=== PATIENT | male | born 1975 | race Caucasian/White ===

== ENCOUNTER 2022-01-06 14:31 | Inpatient (IN) | payer OTHER, SELFPAY ==
[2022-01-06] VITALS (17 sets, daily range): BP systolic 114–150; BP diastolic 73–91; PULSE 65–89; RESP 11–17; O2SAT 96–100; BMI 41.0
--- NOTE | ~2022-01-06 | XR_ITS ---
EXAMINATION: XR chest 1V portable Exam Date/Time: 01/06/2022 14:50 CDT CLINICAL HISTORY: chest pain, STEMI Comparison: None available. RESULT: Lines, tubes, and devices: Partially visualized cervical spine hardware. Lungs and pleura: Subsegmental opacities in the lateral left lung base, with costophrenic angle blun ting.. Cardiomediastinal silhouette: Stable cardiomediastinal silhouette. Other: No acute osseous or upper abdominal finding. IMPRESSION: Atelectasis/consolidation in the left lateral lower lung with adjacent small pleural effusion. Reviewed, dictated and finalized at location K. IMPRESSION: Atelectasis/consolidation in the left lateral lower lung with adjacent small pl eural effusion.
--- NOTE | 2022-01-06 14:36 | ECG_ITS ---
Measurements Intervals [place] Rate: 79 P: 68 DC: 167 QRS: 81 QRSD: 96 T: 68 QT: 362 QTc: 416 Interpretive Statements SINUS RHYTHM LOW QRS VOLTAGE IN PRECORDIAL LEADS [QRS DEFLECTION < 1.0 mV IN CHEST LEADS] ANTEROSEPTAL MYOCARDIAL INFARCTION , OF INDETERMINATE AGE [40+ ms Q WAVE IN V1-V4] MARKED ST ELEVATION, CONSIDER INFERIOR AND LATERAL INJURY [MARKED ST ELEVATION W/O NORMALLY INFLECTED T WAVE IN II/aVF] ACUTE [place] NO PREVIOUS ECG AVAILABLE FOR COMPARISON Electronically Signed On 01-06-2022 16:17:53 CDT by Cande Jernigan M.D.
[2022-01-06 14:39] LABS: Glucose Point of Care 157 mg/dl (65-105)
--- NOTE | 2022-01-06 14:42 | ED.CHESTPAIN ---
HPI - Chest Pain General Chief Complaint: Chest Pain Stated Complaint: general ill feeling History of Present Illness HPI narrative: pt woke up took am meds no food went into yard to change electrical outlet on house no electric shock then sudden onset sweating and cp sob all right sided pointing to lower chest/upper abd but says doesn't feel like abd says dull discomfort in chest right sided adn started lower back at first Related Data Allergies Allergy/AdvReac Type Severity Reaction Status Date / Time lorazepam Allergy Unknown Verified 08/07/19 11:48 Review of Systems Review of Systems: CONSTITUTIONAL: Denies fever, chills, or sweats. EYES: Denies visual changes, redness, or discharge. ENT: Denies rhinorrhea, congestion, sore throat, or otalgia. CARDIOVASCULAR: Denies , palpitations, or edema. has cp RESPIRATORY: Denies cough, has sob. GASTROINTESTINAL: Denies abdominal pain, nausea, vomiting, or diarrhea. GENITOURINARY: Denies dysuria or hematuria. SKIN: Denies rash or itching. has sweating MUSCULOSKELETAL: Denies back pain, joint pain, or myalgia. NEUROLOGIC: Denies headache, numbness, or weakness. PSYCHIATRIC: Denies anxiety or depression. [facility] Past Medical History Medical History H/O placement of stent in anterior descending branch of left coronary artery Hyperlipidemia Hypertension Family History Family History Father Hypertension Family history of diabetes mellitus in first degree relative Mother Hypertension Family history of diabetes mellitus in first degree relative Social History Social History Smoking end date: 09/09/12 Alcohol intake: current Exam Narrative: APPEARANCE: obese, pale clamy in pain Head normocephalic atraumtaic. EYES: PERRLA/EOMI, conjunctivae very clear. NOSE: Normal no drainage EARS:TMS clear Kartik Fitch, with good light reflex. THROAT: Pharynx clear, no exudate. NECK: Supple. No adenopathy, no masses. RESPIRATORY: Airway patent, repsirations nonlabored. Clear to auscultation bilaterally, no rales, rhonchi, wheezing. CARDIOVASCULAR: Regular rate and rhythm without murmurs rubs or gallops. ABDOMINAL: Soft, nontender, nondistended, no hepatosplenomegally cant reproduce the pain to palp ruq says in his chest MUSCULOSKELETAl: Moves all extremities. Strenght/ROM intact, No edema, No calf tenderness. NEURO: Alert. Cranial nerves II through XII intact. Good gait. Good coordination SKIN:: Warm, dry. Normal Color slightly clamy PSYCHIATRIC: Normal affect/mood, normal interaction with parents. Course Consultations Consultation #1: talked to Dr Funes at 1435 he reviewed old records wanted ekg old and new texted to him so sent at 1440 protocol going for stemi called back at 1444 wants repeat ekg then heading out agrees sublte new inferior changes aware of ekg at [address] here cath team also already called in pt's vitals stable no new issues meds all ordered and going Vital Signs Vital signs: Vital Signs Pulse Rate 75 01/06/22 14:30 Respiratory Rate 15 01/06/22 14:30 Blood Pressure 114/75 01/06/22 14:30 Pulse Oximetry 99 01/06/22 14:30 Pulse Rate 72 01/06/22 15:06 Respiratory Rate 14 01/06/22 15:06 Blood Pressure 133/75 01/06/22 15:06 Pulse Oximetry 98 01/06/22 15:06 MDM - Chest Pain Differential Diagnosis Differential diagnosis: Likely atypical chest pain, st elevation myocardial infarction and biliary colic Lab Data Attestation: I reviewed the patient's lab results. Result diagrams: 01/06/22 14:55 01/06/22 14:55 Labs: Lab Results 01/06/22 01/06/22 01/06/22 Range/Units 14:36 14:55 14:55 WBC 20.0 H (4.5-10.0) K/mm3 RBC 4.84 (4.6-6.20) M/mm3 Hgb 14.8 (14.0-18.0) g/dL Hct 46.7 (42.0-52.0) % MCV 96.5 (80-100) fl MCH 30.6
[2022-01-06] MEDS: MORPHINE SULFATE (*CRX) 2 MG/ML INJ IV PUSH ×2 (14:45→15:05)
[2022-01-06] MEDS: ONDANSETRON INJ 4 MG/2 ML VIAL IV PUSH (14:45)
--- NOTE | 2022-01-06 14:47 | ECG_ITS ---
Measurements Intervals [place] Rate: 74 P: 61 [place]: 164 QRS: 54 QRSD: 92 T: 41 QT: 360 QTc: 400 Interpretive Statements SINUS RHYTHM LOW QRS VOLTAGE IN PRECORDIAL LEADS ANTEROSEPTAL INFARCT, AGE INDETERMINATE SUBTLE ST ELEVATION IN INFERIOR AND LATERAL LEADS- CONSIDER ACUTE INJURY ABNORMAL ECG Electronically Signed On 01-08-2022 7:48:10 CDT by Brien Luke D.O.
[2022-01-06 15:00] LABS: Basophils Absolute Auto 0.1 K/mm3 (0.0-0.1); Basophils Percent Auto 0.4 % (0.2-1.2); Eosinophils Absolute Auto 0.1 K/mm3 (0-0.3); Eosinophils Percent Auto 0.5 % (0-4.4); Hematocrit 46.7 % (42.0-52.0); Hemoglobin 14.8 g/dL (14.0-18.0); Immature Granulocyte Absolute 0.18 K/mm3 (0.00-0.031); Immature Granulocyte Percent A 0.9 % (0-0.5); Lymphocytes Absolute Auto 3.35 K/mm3 (0.9-3.2); Lymphocytes Percent Auto 16.7 % (18.3-44.2); Mean Corpuscular HGB Conc 31.7 g/dl (32-36); Mean Corpuscular Hemoglobin 30.6 pg (26-34); Mean Corpuscular Volume 96.5 fl (80-100); Monocytes Absolute Auto 1.3 K/mm3 (0.1-0.6); Monocytes Percent Auto 6.6 % (2.6-8.5); Neutrophils Percent Auto 74.9 % (45.5-73.1); Platelet Count Result 329 k/mm3 (150-375); Red Blood Count 4.84 M/mm3 (4.6-6.20); Red Cell Distribution Width 13.5 % (11.5-14.5)
[2022-01-06] MEDS: SODIUM CHLORIDE 0.9% IV 1,000 ML 150 ML IV CONT (15:04)
[2022-01-06] MEDS: TICAGRELOR 90 MG TABLET 180 MG PO (15:04)
--- NOTE | 2022-01-06 15:04 | PM.IMHP ---
H&P: HPI History of Present Illness Date/Time: 01/06/22 15:04 Chief Complaint: CP Inferior STEMI Narrative: Bertin Mueller is a 46 y.o. male with CAD, (anterior VA? and) status post VFib arrest in October 2012 treated with aspiration thrombectomy and drug-eluting stent to the proximal Left anterior descending. Cardiac catheterization in January 2014 showed EF of 55% with a patent Left anterior descending stent. History of hypertension, hyperlipidemia. Followed by Dr. Garcia in our office, stable for the last several years, seen in April 2021 stable. He was in his normal state of health, compliant w/ meds, this morning when he woke up at 10:00 a.m. However about 12: 30 p.m. he suddenly felt a severe heavy weight on his chest with shortness of breath. He was brought to the emergency room and found to have some slight ST change in the inferior leads, possible inferior STEMI. I was asked to see the patient and repeat EKG showed extensive Inferolateral ST elevation consistent with an inferolateral STEMI. Code STEMI has been called. The patient has received aspirin, heparin, nitroglycerin spray and morphine but is still having a lot of chest pain. Review of Systems Constitutional: Constitutional: Reports lethargy Eyes: Eyes: Reports no additional eye complaints ENT: Denies epistaxis Cardiovascular: Cardiovascular: Reports chest pain, Denies pedal edema, Denies leg edema, Denies lightheadedness and Denies palpitations Respiratory: Respiratory: Denies cough and Reports dyspnea Gastrointestinal: Gastrointestinal: Denies abdominal pain, Denies melena and Denies hematochezia Genitourinary: Genitourinary: Denies hematuria Musculoskeletal: Musculoskeletal: Reports arthralgias Integumentary/Breasts: Skin/Breast: Denies rash Neurologic: Denies confusion Psychiatric: Psychiatric: Reports anxiety and Reports depression Comments: Under lot of stress recently; injured on the job several years ago and unemployed. [facility] Past Medical History Medical History (Updated 01/06/22 @ 18:01 by Cande Jernigan MD) H/O placement of stent in anterior descending branch of left coronary artery s/p fib arrest, LAD stent Hyperlipidemia Hypertension Surgical History Surgical History (Updated 01/06/22 @ 18:01 by Cande Jernigan MD) No history of previous surgery Family History Family History (Updated 01/06/22 @ 18:02 by Cande Jernigan MD) Father Hypertension Family history of diabetes mellitus in first degree relative Mother Hypertension Family history of diabetes mellitus in first degree relative CHF (congestive heart failure) Cause of Social History Social History Years smoked: 32 Smoking status: Former smoker Smokeless tobacco user: chewing tobacco Smoking end date: 09/09/12 Alcohol intake: current Drinks per week: 1 Substance use type: does not use Spiritual care concerns: No Meds Home Medications and Allergies Home Medications Medication Instructions Recorded Confirmed Type aspirin [Adult Aspirin EC Low 81 mg PO DAILY 01/06/22 01/06/22 History Strength] atorvastatin 40 mg PO DAILY 01/06/22 01/06/22 History cyclobenzaprine 10 mg PO TID PRN 01/06/22 01/06/22 History levothyroxine [Euthyrox] 50 mcg PO DAILY 01/06/22 01/06/22 History lisinopril 5 mg PO DAILY 01/06/22 01/06/22 History metoprolol succinate 25 mg PO DAILY 01/06/22 01/06/22 History tramadol [Ultram] 50 mg PO PRN PRN 01/06/22 01/06/22 History Allergies Allergy/AdvReac Type Severity Reaction Status Date / Time lorazepam Allergy Unknown Verified 08/07/19 11:48 Vital Signs Vital Signs - 24 hr 01/06/22 14:30 Pulse Rate 75 Respiratory Rate 15 Blood Pressure 114/75 Pulse Oximetry 99 Exam Const: General: in distress and uncomfortable Other: pale HENMT: Mouth: Yes moist mucous membranes Eyes: EOM: EOMs intact bilaterally Neck: Neck
[2022-01-06 15:12] LABS: Alanine Aminotransferase 61 U/L (4-50); Albumin Level 4.3 g/dL (3.5-5.1); Alkaline Phosphatase 104 U/L (38-126); Anion Gap 7 mmol/L (8-16); Aspartate Amino Transferase 57 U/L (17-59); Bilirubin,Total 0.9 mg/dL (0.2-1.3); Blood Urea Nitrogen 14 mg/dL (9-20); Calcium 8.3 mg/dL (8.4-10.2); Carbon Dioxide 22 mmol/L (22-30); Chloride 104 mmol/L (98-107); Cholesterol 131 mg/dL (0-200); Estimated CRCL calculation 115 ml/min; Estimated Glomerular Filt Rate > 60; Glucose 169 mg/dL (65-110); HDL Direct 37 mg/dL; Potassium 4.4 mmol/L (3.4-5.0); Sodium 133 mmol/L (137-145); Triglycerides 141 mg/dL (<150)
[2022-01-06 15:20] LABS: Platelet Estimate Adequate (Adequate)
[2022-01-06 15:21] LABS: Burr Cells 1+ (NORMAL)
[2022-01-06 15:22] LABS: LDL Cholesterol Direct 67 mg/dL
--- NOTE | 2022-01-06 15:24 | WPDMODSED ---
Moderate Sedation Note-Pt Data Patient Data Allergies Allergy/AdvReac Type Severity Reaction Status Date / Time lorazepam Allergy Unknown Verified 08/07/19 11:48 Current Medications: Active Medications Sodium Chloride (Normal Saline Iv) 1,000 mls @ 150 mls/hr IV CONT .Q6H40M STA Stop: 01/06/22 21:34 Last Admin: 01/06/22 15:04 Dose: 150 mls/hr Documented by: Sedation/Anesthesia: No previous sedation/anesthesia problems (including family history). [facility] Past Medical History Medical History (Updated 01/06/22 @ 15:11 by Cande Jernigan MD) H/O placement of stent in anterior descending branch of left coronary artery Hyperlipidemia Hypertension Family History Family History (System 08/07/19 @ 11:48 by Edith Johnson) Father Hypertension Family history of diabetes mellitus in first degree relative Mother Hypertension Family history of diabetes mellitus in first degree relative Social History Social History (System 08/07/19 @ 11:48 by Edith Johnson) Smoking end date: 09/09/12 Alcohol intake: current Mod Sed Physical Exam Physical Exam Pre Procedural Exam: Normal: Airway Hours since solid foods: 4 Hours since liquid intake: 4 Mallampati Classification: class II Internal Medicine - PN: Obj Da Vital Signs Vital Signs: Vital Signs - 24 hr 01/06/22 14:30 01/06/22 15:06 Pulse Rate 75 72 Respiratory Rate 15 14 Blood Pressure 114/75 133/75 Pulse Oximetry 99 98 Meds/Results Medications: Active Medications Generic Name Dose Route Start Last Admin Trade Name Freq PRN Reason Stop Dose Admin Sodium Chloride 1,000 mls @ 150 mls/hr 01/06/22 14:55 01/06/22 15:04 Normal Saline Iv IV CONT 01/06/22 21:34 150 mls/hr .Q6H40M STA Administration Radiology Results: ITS Impressions Chest X-Ray 01/06/22 15:01 IMPRESSION: Atelectasis/consolidation in the left lateral lower lung with adjacent small pleural effusion. Labs CBC & Chem 7: 01/06/22 14:55 01/06/22 14:55 Labs: Laboratory Results - last 24 hr 01/06/22 01/06/22 01/06/22 14:36 14:55 14:55 WBC 20.0 H RBC 4.84 Hgb 14.8 Hct 46.7 MCV 96.5 MCH 30.6 MCHC 31.7 L RDW 13.5 Plt Count 329 MPV 10.0 Immature Gran % (Auto) 0.9 H Neut % (Auto) 74.9 H Lymph % (Auto) 16.7 L [place] % (Auto) 6.6 Eos % (Auto) 0.5 Baso % (Auto) 0.4 Lymph # (Auto) 3.35 H [place] # (Auto) 1.3 H Eos # (Auto) 0.1 Baso # (Auto) 0.1 Abs Immat Gran (auto) 0.18 H Absolute Neuts (auto) 15.0 H Absolute Nucleated RBC 0.0 Nucleated RBC % 0.0 Platelet Estimate Adequate Graciela Cells 1+ Sodium 133 L Potassium 4.4 Chloride 104 Carbon Dioxide 22 Anion Gap 7 L BUN 14 Creatinine 0.90 Estim Creat Clear Calc 115 Estimated GFR > 60 Glucose 169 H POC Capillary Glucose 157 H Calcium 8.3 L Total Bilirubin 0.9 AST 57 ALT 61 H Alkaline Phosphatase 104 Total Protein 7.0 Albumin 4.3 Triglycerides 141 Cholesterol 131 LDL Cholesterol Direct 67 HDL Direct 37 ASA Classification/Sedation ASA Classification/Sedation ASA Class: IV Emergent: Yes Risks: Risks, benefits and alternatives explained and patient/family accepted plan for sedation. Patient re-evaluated immediately prior to sedation.
[2022-01-06 15:25] LABS: Troponin I < 0.012 ng/mL (0.000-0.034)
--- NOTE | 2022-01-06 15:26 | WPDCARDPROC ---
Cardiac Cath Procedure Note Date of procedure:: 01/06/22 Performing physician:: Héctor Funes MD Procedure Procedure note:: EMERGENT CARDIAC CATHETERIZATION AND PERCUTANEOUS CORONARY INTERVENTION REPORT DATE OF PROCEDURE: 01/06/2022 INDICATION FOR PROCEDURE: ACUTE CORONARY SYNDROME -ST-ELEVATION IN THE INFERIOR LEADS WITH RECIPROCAL CHANGES BRIEF CLINICAL HISTORY: 46-year-old male with known history of premature CAD, history of anterior ST-elevation [place] status post PCI/ 3.0 x 18 mm Xience everolimus eluting stent placement to the ostial LAD on 10/16/[address] Perez, hypertension, history of tobacco abuse. Patient was brought to [facility] emergency room with complaints of chest pain that started approximately 3 hours prior to arrival. EMS EKG showed sinus rhythm with subtle ST elevation in the inferior leads. Repeat EKG in the emergency room showed significant worsening of the ST-elevation in the inferior leads. Cardiac catheterization lab was activated. Patient received aspirin, and was given loading dose of ticagrelor the emergency room, in addition to heparin bolus. PROCEDURES PERFORMED: 1. Emergent left heart catheterization- Selective left and right coronary angiogram; left ventriculogram and hemodynamic assessment 2. Percutaneous coronary intervention- a) aspiration thrombectomy of distal left main, ostial LCX and ostial LAD using penumbra CAT Rx aspiration catheter; c) intravascular ultrasound (IVUS) of left main, ostial left circumflex artery and ostial -proximal LAD 3. Moderate sedation-CPT code 36528 MODERATE SEDATION: Midazolam 1 mg; fentanyl 50 mcg. Start time 1538 , Stop time 1627 ; Total [id number] time 49 minutes; Ilene Broussard RN was trained observer for moderate sedation. ACCESS SITE: Right common femoral artery PROCEDURE NOTE: Patient was emergently brought to catheterization lab and prepped and draped in a usual sterile manner. After local anesthesia with lidocaine, right common femoral artery access was taken with micropuncture needle followed by insertion of a 6 Indian sheath. Selective left and right coronary angiogram was performed using 5 Indian JL4 and JR4 catheters respectively. Orthogonal views were taken. Next, a 5 Indian JR catheter was advanced in the LV cavity and was flushed with normal saline. LV pressure measurement was performed. After this, left ventriculogram was performed using minimal dye. The catheter was flushed again, and gradient across the aortic valve was measured on the pullback of the catheter. The angiographic findings and details of intervention are given below. FINDINGS: LEFT MAIN CORONARY: The left main coronary artery is a large caliber vessel with a hazy thrombotic material in the distal segment involving the origins of LAD , and ostial LCX. LEFT ANTERIOR DESCENDING ARTERY: the LAD is a medium caliber vessel. Previously placed stent is seen in the proximal segment but appears to not cover the ostium of the LAD. Sluggish blood flow is seen in the LAD with thrombotic occlusion in the distal most part of the LAD near LV apex. Diagonal branches are small caliber vessel without significant focal stenosis. LEFT CIRCUMFLEX ARTERY: The left circumflex artery is a large size, dominant vessel which gives rise to large caliber OM branches and large caliber LPDA. There is hazy high-grade stenosis at the ostium which on IVUS is found to be calcific high-grade stenosis. RIGHT CORONARY ARTERY: RCA is a medium caliber, nondominant vessel without significant focal stenosis. LEFT VENTRICULOGRAM: Overall LV systolic function is preserved with ejection fraction about 55-60%. LVEDP was measured between 11-15 mmHg. HEMODYNAMIC ASSESSMENT: Opening pressure 106/85 mmHg , closing pressure 107/66 mmHg , LVEDP 11-15 mmHg; no significant gradient across aortic valve on the pullback of pigtail catheter. INTERVENTION REPORT: Given patient's clinical presentation and angiographi
--- NOTE | 2022-01-06 17:11 | PM.TDS ---
Transfer Discharge Sum: Prov Provider Date of admission: 01/06/22 16:51 Primary care physician: Rome Gillespie, Admitting clinician: Héctor Funes MD DS: Admitting Diagnosis Discharge Date acute coronary syndrome Admitting Diagnosis Acute coronary syndrome-ST elevation myocardial infarction CAD involving left main, ostial LCX Transfer Discharge Sum: Med Medications Active and Home Medications: Active Medications Sodium Chloride (Normal Saline Iv) 1,000 mls @ 150 mls/hr IV CONT .Q6H40M STA Stop: 01/06/22 21:34 Last Admin: 01/06/22 15:04 Dose: 150 mls/hr Documented by: Transfer Discharge Sum: Hosp Hospital Course Hospital course: Bertin Mueller is a 46 year male with known history of premature CAD, history of anterior ST-elevation [place] status post PCI/ 3.0 x 18 mm Xience everolimus eluting stent placement to the ostial LAD on 10/16/[address] Perez, hypertension, history of tobacco abuse. Patient was brought to [facility] emergency room with complaints of chest pain that started approximately 3 hours prior to arrival. EMS EKG showed sinus rhythm with subtle ST elevation in the inferior leads. Repeat EKG in the emergency room showed significant worsening of the ST-elevation in the inferior leads. Cardiac catheterization lab was activated. Patient received aspirin, and was given loading dose of ticagrelor the emergency room, in addition to heparin bolus. Emergent coronary angiogram showed hazy, thrombotic material in the distal left main; high-grade, hazy, calcific (on IVUS) stenosis at the ostium of dominant LCX; patent previously placed proximal LAD stent, however, ostium of the LAD is not covered with the stent and shows atherosclerotic plaque on IVUS; preserved overall LV systolic function, ejection fraction 55-60%, LVEDP 11-15 mmHg. Patient underwent aspiration thrombectomy of distal left main, ostial LCX, ostial LAD using penumbra CAT Rx aspiration catheter; IVUS of distal left main, ostial-proximal LAD and ostial LCX. Patient was chest pain-free and hemodynamically stable after thrombectomy. Patient will be transferred to [facility] for revascularization -PCI versus CABG. I spoke with CT surgeon at [facility] and also updated liaison inspection laboratory assistant. Patient will be initiated on unfractionated heparin, and will be continued on aspirin and high-dose statin. Patient and his family updated. Time Spent with Patient Time attestation: Total time spent providing and/or coordinating transfer services:43 minutes Exam Narrative: PHYSICAL EXAMINATION: GENERAL: obese, Alert, oriented, no acute distress MENTAL STATUS: Anxious EYES: Extraocular movements intact, no pallor EARS: External ears appear normal, hearing grossly normal NOSE: Normal and patent, no discharge MOUTH: Mucous membranes moist, tongue normal NECK: Supple, no JVD CHEST: Good respiratory effort, clear to auscultation HEART: Normal rate, regular rhythm, normal S1 and S2 ABDOMEN: Soft, nontender NEUROLOGICAL: Alert, oriented, normal speech, no gross motor deficits MUSCULOSKELETAL: No major deformity, no amputation EXTREMITIES: No pedal edema, no clubbing, no cyanosis; 7 [place] arterial sheath was secured in the right groin access site SKIN: no rash on the exposed area, no cyanosis PSYCHIATRIC: Normal mood, appropriate affect DS: Data Data Completed and Pending Labs on day of discharge: Labs from last 24 hours 01/06/22 01/06/22 01/06/22 14:55 14:55 14:36 WBC 20.0 H RBC 4.84 Hgb 14.8 Hct 46.7 MCV 96.5 MCH 30.6 MCHC 31.7 L RDW 13.5 Plt Count 329 MPV 10.0 Immature Gran % (Auto) 0.9 H Neut % (Auto) 74.9 H Lymph % (Auto) 16.7 L [place] % (Auto) 6.6 Eos % (Auto) 0.5 Baso % (Auto) 0.4 Lymph # (Auto) 3.35 H [place] # (Auto) 1.3 H Eos # (Auto) 0.1 Baso # (Auto) 0.1 Abs Immat Gran (auto) 0.18 H Absolute Neuts (auto) 15.0 H Absolute N
--- NOTE | 2022-01-06 17:24 | ADMGEN ---
This patient, Bertin Mueller, was admitted to Intensive Care Unit-6 at 1641. Patient/family oriented to hospital policies and general routines including ID bracelet, bed and alarms, visiting hours, pain management, procedures, bathroom and other care routines, personal items, smoking policy, room service/diet, and visiting hours. Information on how to activate the Rapid Response Team has been discussed. Patient/Family are encouraged to report perceived risks to care and to ask questions if they do not understand what they are told or what they should do.
[2022-01-06 17:47] LABS: INR 1.1; Prothrombin Time 13.4 Seconds (11.1-14.7)
--- NOTE | 2022-01-06 17:52 | PC.NURSE ---
Pt arrived from slab tripper accompanied by two RN's. VSS. Right femoral sheath access site clean, dry, soft, and intact. All questions answered. Physician present in room.
[2022-01-06] MEDS: fentaNYL CITRATE INJ (*CRX) 100 MCG/2 ML VIAL 25 MCG IV PUSH (18:11)
[2022-01-06] MEDS: ATORVASTATIN 40 MG TABLET 80 MG PO (19:20)
[2022-01-06 20:04] LABS: Partial Thromboplastin Time 34.2 SECONDS (22.3-36.8)
[2022-01-06] MEDS: traMADol HCL (*CRX) 50 MG TABLET 100 MG PO (20:13)
--- NOTE | 2022-01-06 20:21 | PC.NURSE ---
Pt has tramadol 100mg ordered but states that is too much and it would make him loopy . Confirmed that patient takes a 50mg dose at home. 50mg given PO and Dr Funes spoken with and order to reduce dosage to 50mg received.
[2022-01-06] MEDS: HEPARIN SOD/D5W 100 UNITS/ML 25,000 UNITS/250 ML BAG IV CONT (20:24)
[2022-01-06] MEDS: METOPROLOL TARTRATE 25 MG TABLET PO (21:08)
== END 2022-01-07 | disposition short-term general hospital (02) | DRG 174 ==
LOC: ANHED 15:27 → ANHICU 17:23 → ANHSURGERY 01-11 13:36 → ANHICU 01-11 13:36
PROVIDERS: Admitting Provider Internal Medicine Cardiovascular Disease; Emergency Provider Emergency Medicine; PCP Internal Medicine; Visit Provider Internal Medicine Cardiovascular Disease
PROC: 4A023N7 Measurement of Cardiac Sampling and Pressure, Left Heart, Percutaneous Approach (ICD-10-PCS; CPT 93452; principal; 2022-01-06 15:05)
PROC: 02C23ZZ Extirpation of Matter from Coronary Artery, Three Arteries, Percutaneous Approach (ICD-10-PCS; CPT 92973; 2022-01-06 15:05)
PROC: 02C23ZZ Extirpation of Matter from Coronary Artery, Three Arteries, Percutaneous Approach (ICD-10-PCS; 2022-01-06 15:05)
PROC: 02C23ZZ Extirpation of Matter from Coronary Artery, Three Arteries, Percutaneous Approach (ICD-10-PCS; CPT 37252; 2022-01-06 15:05)
DX: I21.19 ST elevation (STEMI) myocardial infarction involving other coronary artery of inferior wall (principal); I25.10 Atherosclerotic heart disease of native coronary artery without angina pectoris; I10 Essential (primary) hypertension; E78.5 Hyperlipidemia, unspecified; Z95.5 Presence of coronary angioplasty implant and graft; I25.2 Old myocardial infarction; Z87.891 Personal history of nicotine dependence; E66.9 Obesity, unspecified; Z68.41 Body mass index [BMI] 40.0-44.9, adult
CPT/HCPCS: 36415; 71045; 80053; 80061; 82948; 84484; 85025; 85610; 85730; 86850; 86900; 86901; 92973; 92978; 92979; 93005; 93458; 96374; 96375; 99291; A9270; C1753; C1757; C1769; C1887; C1894; J0583; J1644; J2250; J2270; J2405; J3010; J7030

== ENCOUNTER 2022-01-24 12:22 | Emergency (ER) | payer OTHER, SELFPAY ==
[2022-01-24] VITALS (20 sets, daily range): BP systolic 116–154; BP diastolic 79–108; PULSE 62–80; RESP 10–18; TEMP 36.8; O2SAT 97–100
--- NOTE | ~2022-01-24 | CT_ITS ---
EXAMINATION: CT brain wo con INDICATION: Headache COMPARISON: 06/16/2008 TECHNIQUE: Standard unenhanced head CT. The dose-length product (DLP) was 605.33 mGy-cm. The mA was a djusted according to patient size. Iterative reconstruction technique was employed. FINDINGS: There is no intracranial hemorrhage, acute infarction, or abnormal mass lesion. The ventric les are normal. There is no abnormal mass effect or midline shift. The kincaid-white matter differentiat ion is normal. The basal cisterns are patent. The orbits are normal. The paranasal sinuses, mastoids and calvarium are normal. IMPRESSION: 1. No acute intracranial abnormality. Reviewed, dictated and finalized at location A.
--- NOTE | ~2022-01-24 | XR_ITS ---
EXAMINATION: XR chest 1V DATE: 01/24/2022 13:03 INDICATION: Cough. TECHNIQUE: A single frontal view of the chest was obtained on 2 radiographs. COMPARISON: Chest single view 01/06/2022, CT abdomen and pelvis 09/01/2014 FINDINGS: The chest demonstrates clear lungs without pneumonia, pleural effusion, or pneumothorax. Th e heart size is normal. Instrumentation in cervical spine may be disc replacements. IMPRESSION: 1. No acute cardiopulmonary disease. Reviewed, dictated and finalized at location B.
--- NOTE | 2022-01-24 12:32 | ECG_ITS ---
Measurements Intervals [place] Rate: 72 P: 70 ID: [id number] QRS: 51 QRSD: 91 T: 12 QT: 352 QTc: 388 Interpretive Statements SINUS RHYTHM LOW QRS VOLTAGE IN PRECORDIAL LEADS ANTEROSEPTAL INFARCT, AGE INDETERMINATE CONSIDER INFERIOR INFARCT, AGE INDETERMINATE ABNORMAL ECG Electronically Signed On 01-24-2022 13:11:17 CDT by Brien Luke D.O.
--- NOTE | 2022-01-24 12:38 | ED.DIZZY ---
HPI - Dizziness General Chief Complaint: Dizziness Stated Complaint: dizzy, recent IN Time Seen by Provider: 01/24/22 12:27 Source: RN notes reviewed History of Present Illness HPI Narrative: Patient presents emergency department from home via EMS for dizziness. Patient states that he was sweeping with a broom when he became lightheaded and felt like he may pass out states episode lasted for approximately 2 minutes and is now resolved he denies having any feeling of the room spinning he denies having any vision changes, numbness or tingling of the extremities weakness of the extremities, chest pain, shortness of breath abdominal pain nausea vomiting or any other symptoms. Patient states he did recently have a heart catheterization with stents placed and is followed by Dr. Garcia states this occurred at the end of December Related Data Home Medications Medication Instructions Recorded Confirmed aspirin [Adult Aspirin EC Low 81 mg PO DAILY 01/06/22 01/24/22 Strength] atorvastatin 40 mg PO DAILY 01/06/22 01/24/22 cyclobenzaprine 10 mg PO TID PRN 01/06/22 01/24/22 levothyroxine [Euthyrox] 50 mcg PO DAILY 01/06/22 01/24/22 lisinopril 5 mg PO DAILY 01/06/22 01/24/22 metoprolol succinate 25 mg PO DAILY 01/06/22 01/24/22 tramadol [Ultram] 50 mg PO PRN PRN 01/06/22 01/24/22 Allergies Allergy/AdvReac Type Severity Reaction Status Date / Time lorazepam Allergy Unknown Verified 08/07/19 11:48 Review of Systems Review of Systems: Gen.: Denies fevers or chills Eyes: Denies eye pain or visual change ENT: Denies congestion Respiratory: Denies shortness of breath or cough CV: See HPI GI: Denies abdominal pain nausea, emesis or diarrhea Musculoskeletal: Denies back pain or muscle pain Neuro: Denies numbness, tingling, weakness or focal weakness Skin: Denies rash Except as documented, all other systems reviewed and negative [facility] Past Medical History Medical History H/O placement of stent in anterior descending branch of left coronary artery s/p fib arrest, LAD stent Hyperlipidemia Hypertension Surgical History Surgical History (Updated 01/06/22 @ 18:01 by Cande Jernigan MD) No history of previous surgery Family History Family History (Updated 01/06/22 @ 18:02 by Cande Jernigan MD) Father Hypertension Family history of diabetes mellitus in first degree relative Mother Hypertension Family history of diabetes mellitus in first degree relative CHF (congestive heart failure) Cause of Social History Social History Years smoked: 32 Smoking status: Former smoker Smokeless tobacco user: chewing tobacco Smoking end date: 09/09/12 Alcohol intake: current Drinks per week: 1 Substance use type: does not use Spiritual care concerns: No Exam Narrative: APPEARANCE: No acute distress, nontoxic, resting in bed EYES: EOMI, PERRL HEENT: Normocephalic, atraumatic, OMM RESPIRATORY: No respiratory distress Clear to auscultation bilaterally with no rhonchi wheezing or rales. CARDIOVASCULAR: Regular rate and rhythm without murmurs rubs or gallops. ABDOMINAL: Soft, nontender, nondistended, no rebound or guarding MUSCULOSKELETAl: Moves all extremities. No clubbing, cyanosis or edema. NEURO: Awake and alert x 3. Following commands, speech normal, no facial droop, muscle strength 5 out of 5 bilateral upper and lower extremities, no pronator SKIN:: Warm, dry. No rashes lesions or abrasions PSYCHIATRIC: Normal affect/mood, Course Course Emergency Course: Patient has been asymptomatic throughout his stay in ED remained on quality assurance monitor with no arrhythmias noted Discussed with patient he states that he believes he had an anxiety attack he states he has a history of anxiety attacks has been the ER for them several times for the past. States he used to be on medication for anxiety was been off
[2022-01-24 13:22] LABS: Basophils Absolute Auto 0.1 K/mm3 (0.0-0.1); Basophils Percent Auto 0.5 % (0.2-1.2); Eosinophils Absolute Auto 0.1 K/mm3 (0-0.3); Eosinophils Percent Auto 0.8 % (0-4.4); Hematocrit 36.4 % (42.0-52.0); Hemoglobin 11.5 g/dL (14.0-18.0); Immature Granulocyte Absolute 0.16 K/mm3 (0.00-0.031); Immature Granulocyte Percent A 1.2 % (0-0.5); Lymphocytes Absolute Auto 1.29 K/mm3 (0.9-3.2); Mean Corpuscular HGB Conc 31.6 g/dl (32-36); Mean Platelet Volume 9.1 fl (7.4-10.4); Monocytes Percent Auto 7.4 % (2.6-8.5); Neutrophils Absolute Auto 10.3 K/mm3 (1.3-6.7); Neutrophils Percent Auto 80.1 % (45.5-73.1); Platelet Count Result 444 k/mm3 (150-375); Red Blood Count 3.83 M/mm3 (4.6-6.20); Red Cell Distribution Width 15.5 % (11.5-14.5); White Blood Count 12.9 K/mm3 (4.5-10.0)
[2022-01-24] MEDS: SODIUM CHLORIDE 0.9% IV 1,000 ML 999 ML IV CONT (13:23)
[2022-01-24 13:34] LABS: Alanine Aminotransferase 43 U/L (6-50); Albumin Level 3.9 g/dL (3.5-5.1); Alkaline Phosphatase 134 U/L (38-126); Anion Gap 10 mmol/L (8-16); Aspartate Amino Transferase 33 U/L (17-59); Bilirubin,Total 0.9 mg/dL (0.2-1.3); Blood Urea Nitrogen 15 mg/dL (9-20); Calcium 8.1 mg/dL (8.4-10.2); Carbon Dioxide 23 mmol/L (22-30); Chloride 105 mmol/L (98-107); Estimated CRCL calculation 120 ml/min; Estimated Glomerular Filt Rate > 60; Glucose 109 mg/dL (65-110); Potassium 3.9 mmol/L (3.4-5.0); Sodium 138 mmol/L (137-145)
[2022-01-24 13:39] LABS: Prothrombin Time 12.7 Seconds (11.1-14.7)
[2022-01-24 13:40] LABS: Partial Thromboplastin Time 26.3 SECONDS (22.3-36.8)
[2022-01-24 13:42] LABS: Troponin I < 0.012 ng/mL (0.000-0.034)
--- NOTE | 2022-01-24 14:34 | PC.NURSE ---
Told pt we needed a urine sample and pt refused to give urine sample due to already having blood work and wanting to leave.
--- NOTE | 2022-01-24 15:20 | PC.NURSE ---
Service recovery done by this RN. Pt states he wants lab results and to be discharged after. Phleb at bedside drawing labs.
[2022-01-24 16:03] LABS: Troponin I < 0.012 ng/mL (0.000-0.034)
== END 2022-01-24 16:49 | disposition home or self-care (01) ==
PROVIDERS: Emergency Provider Emergency Medicine; PCP Family Medicine
DX: R55 Syncope and collapse (principal); I10 Essential (primary) hypertension; E78.5 Hyperlipidemia, unspecified; Z79.82 Long term (current) use of aspirin; Z79.891 Long term (current) use of opiate analgesic; Z87.891 Personal history of nicotine dependence
CPT/HCPCS: 36415; 70450; 71045; 80053; 84484; 85025; 85610; 85730; 93005; 96360; 99284; J7030

== ENCOUNTER 2022-03-22 14:47 | Outpatient (CLI) | payer OTHER, SELFPAY ==
--- NOTE | ~2022-03-22 | US_ITS ---
US abdomen limited INDICATION: Right upper quadrant pain PROCEDURE: Realtime right upper abdominal ultrasound. COMPARISON: No prior studies for comparison. FINDINGS: Pancreas is obscured by bowel content. Liver echotexture is normal without focal mass or i ntrahepatic biliary dilatation. There is normal directional flow in the portal vein. The gallbladder is normal without stones, gallbladder wall thickening or pericholecystic fluid. Comm on bile duct measures 3 mm. No sonographic Medina's sign. IMPRESSION: 1: Normal limited abdominal ultrasound. Reviewed, dictated and finalized at location A.
== END 2022-03-22 14:48 | disposition home or self-care (01) ==
LOC: CHSIMG 14:53
PROVIDERS: PCP Family Medicine; Visit Provider Family Medicine
DX: R10.11 Right upper quadrant pain (principal)
CPT/HCPCS: 76705

== ENCOUNTER 2022-06-20 11:30 | Emergency (ER) | payer OTHER, SELFPAY ==
--- NOTE | ~2022-06-20 | CT_ITS ---
EXAMINATION: CT abdomen pelvis w con DATE: 06/20/2022 14:14 INDICATION: Right upper quadrant abdominal pain. Nausea. TECHNIQUE: Computed tomography (CT) of the abdomen and pelvis was performed with 100 mL Omnipaque 350 intravenous contrast. Automated exposure control and iterative reconstruction technique were employe d. The dose-length product was 1629.72 mGy-cm. COMPARISON: Ultrasound 06/20/2022 FINDINGS: The visualized portions of the lung bases demonstrate mild atelectasis. No pleural effusion . The heart size is normal. No pericardial effusion. The liver demonstrates a 7 mm cyst. The gallblad michele, spleen, pancreas, and adrenal glands are normal. There are cysts in the kidneys measuring up to 9 mm on the right. There are no dilated loops of bowel. There is diverticulosis of the colon without evidence of diverticulitis. There are no dilated loops of bowel. The appendix is normal. There are no pathologically enlarged lymph nodes. There is no free intraperitoneal fluid. There is mild thoracolu mbar spondylosis. IMPRESSION: 1. No etiology for the patient's symptoms. Reviewed, dictated and finalized at location A.
--- NOTE | ~2022-06-20 | US_ITS ---
EXAMINATION: US abdomen limited DATE: 06/20/2022 13:40 INDICATION: Severe right upper quadrant pain TECHNIQUE: Multiple grayscale and Doppler ultrasound images of the abdomen were obtained. COMPARISON: 03/22/2022 FINDINGS: Bowel gas obscures visualization of the pancreas. The liver is normal with normal echogenic ity and echotexture. No surface nodularity. Normal hepatopetal flow in the main portal vein. The gall bladder is normal with no abnormal wall thickening, pericholecystic fluid or stones. The normal commo n bile duct measures 5 mm. There was no sonographic Medina sign. IMPRESSION: 1. Normal sonographic study of the gallbladder. Reviewed, dictated and finalized at location A.
[2022-06-20 11:30] VITALS: BP 114/67; PULSE 100; RESP 16; TEMP 36.4; O2SAT 97
[2022-06-20 11:44] LABS: Basophils Absolute Auto 0.1 K/mm3 (0.0-0.1); Basophils Percent Auto 0.4 % (0.2-1.2); Eosinophils Absolute Auto 0.1 K/mm3 (0-0.3); Eosinophils Percent Auto 0.5 % (0-4.4); Hematocrit 45.5 % (42.0-52.0); Immature Granulocyte Absolute 0.11 K/mm3 (0.00-0.031); Immature Granulocyte Percent A 0.8 % (0-0.5); Lymphocytes Percent Auto 13.6 % (18.3-44.2); Mean Corpuscular Hemoglobin 28.7 pg (26-34); Mean Corpuscular Volume 87.2 fl (80-100); Mean Platelet Volume 10.1 fl (7.4-10.4); Monocytes Percent Auto 7.5 % (2.6-8.5); Neutrophils Absolute Auto 10.2 K/mm3 (1.3-6.7); Neutrophils Percent Auto 77.2 % (45.5-73.1); Platelet Count Result 330 k/mm3 (150-375); Red Blood Count 5.22 M/mm3 (4.6-6.20); Red Cell Distribution Width 15.5 % (11.5-14.5); White Blood Count 13.3 K/mm3 (4.5-10.0)
[2022-06-20 11:58] LABS: Alanine Aminotransferase 36 U/L (6-50); Albumin Level 4.6 g/dL (3.5-5.1); Alkaline Phosphatase 97 U/L (38-126); Anion Gap 11 mmol/L (8-16); Aspartate Amino Transferase 34 U/L (17-59); Bilirubin,Total 1.5 mg/dL (0.2-1.3); Blood Urea Nitrogen 16 mg/dL (9-20); Calcium 8.7 mg/dL (8.4-10.2); Carbon Dioxide 22 mmol/L (22-30); Chloride 103 mmol/L (98-107); Estimated CRCL calculation 92 ml/min; Estimated Glomerular Filt Rate > 60; Glucose 115 mg/dL (65-110); Lipase 69 U/L (23-300); Potassium 4.7 mmol/L (3.4-5.0); Sodium 136 mmol/L (137-145)
[2022-06-20 11:59] LABS: Add Urine Microscopic? YES; Appearance Urine Clear (Clear); Bilirubin Urine Negative (Negative); Blood Urine 1+ (Negative); Color Urine Yellow (Yellow); Glucose Urine UA Negative (Negative); Hyaline Casts Urine 30-49 /lpf; Ketones Urine Negative (Negative); Leukocyte Esterase Ur Negative LEU/UL (Negative); Mucus Urine Rare /lpf; Nitrate Urine Negative (Negative); Protein Urine Negative (Negative); RBC Urine 0-2 /hpf (0-2); Specific Grav Ur 1.016 (1.001-1.035); Urobilinogen Urine Negative mg/dL (<2.0); WBC Urine 0-3 /hpf
--- NOTE | 2022-06-20 12:58 | ED.ABDPAIN ---
HPI - Abdominal Pain General Chief Complaint: Abdominal Pain Stated Complaint: upper right quad pain Time Seen by Provider: 06/20/22 12:26 History of Present Illness HPI narrative: Patient is a 47-year-old male with a history of CAD, hypertension, hyperlipidemia presenting with abdominal pain. Patient states that he has been having intermittent upper right quadrant pain for the last couple of years. States that it often happens after he eats. States that over the last several months he has had increasingly frequent and severe episodes. States that last night he had a small amount of yogurt and then his pain became more severe than its ever been. States he has been persistently nauseated since then. Patient is scheduled to see GI in 1 month but states he cannot take the pain for that long. He denies fevers, chest pain, shortness of breath, lightheadedness, diarrhea, dysuria, leg swelling. Related Data Home Medications Medication Instructions Recorded Confirmed Adult Aspirin 06/20/22 atorvastatin 80 mg tablet mg 06/20/22 levothyroxine 50 mcg tablet mcg 06/20/22 lisinopril 5 mg tablet mg 06/20/22 metoprolol succinate 25 mg mg PO 06/20/22 tablet,extended release 24 hr ticagrelor 90 mg tablet (Brilinta) mg 06/20/22 Allergies Allergy/AdvReac Type Severity Reaction Status Date / Time No Known Allergies Allergy Verified 06/20/22 11:34 Review of Systems Review of Systems: All systems reviewed & are unremarkable except as noted in HPI and below Exam Narrative: GENERAL: Well-appearing, well-nourished, and in no acute distress. HEAD: Normocephalic, atraumatic. EYES: PERRLA and EOMI. ENT: Nares clear, no rhinorrhea or epistaxis. Mucous membranes moist. NECK: Supple. CHEST: Clear to auscultation. No respiratory distress. HEART: Regular rate and rhythm. No murmur heard. Normal peripheral pulses. ABDOMEN: Soft, +RUQ tenderness, nondistended, normal active bowel sounds. EXTREMITIES: Normal range of motion. No edema. SKIN: Warm, dry, no rash. NEURO: No focal deficits. Alert and oriented x3. PSYCH: Normal mood and affect. Course Course Emergency Course: Patient is a 47-year-old male with history as above presenting with right upper quadrant pain. Vitals are within normal limits. Patient is nontoxic and in no acute distress. Exam is remarkable for right upper quadrant tenderness. Right upper quadrant ultrasound and CT abdomen pelvis show no acute findings. Blood work with mild leukocytosis and very mildly elevated bilirubin. On reevaluation, the patient feels improved though he states he still has a dull bloating feeling in the right upper quadrant. Plan for prescription for Bentyl and advised that he follow-up closely with his PCP as well as try to get in with GI soon as possible. Strict return precautions were given. Patient voiced understanding and is agreeable with plan. Discharged in stable condition. Vital Signs Vital signs: Vital Signs Temperature 97.5 F L 06/20/22 11:30 Pulse Rate 100 06/20/22 11:30 Respiratory Rate 16 06/20/22 11:30 Blood Pressure 114/67 06/20/22 11:30 Pulse Oximetry 97 06/20/22 11:30 Oxygen Delivery Room Air 06/20/22 11:30 Temperature 97.5 F L 06/20/22 11:30 Pulse Rate 84 06/20/22 15:56 Respiratory Rate 16 06/20/22 15:56 Blood Pressure 133/88 06/20/22 15:56 Pulse Oximetry 99 06/20/22 15:56 Oxygen Delivery Room Air 06/20/22 11:30 MDM - Abdominal Pain Lab Data Result diagrams: 06/20/22 11:35 06/20/22 11:35 Labs: Lab Results 06/20/22 06/20/22 06/20/22 Range/Units 11:35 11:35 11:38 WBC 13.3 H (4.5-10.0) K/mm3 RBC 5.22 (4.6-6.20) M/mm3 Hgb 15.0 (14.0-18.0) g/dL Hct 45.5 (42.0-52.0) % MCV 87.2 (80-100) fl MCH 28.7 (26-34) pg MCHC 33.0 (32-36) g/dl RDW 15.5 H (11.5-14.5) % Plt Count 330 (150-375) k/mm3 MPV 10.1 (7.4-10.4) fl Immature Gran % (Auto)
[2022-06-20 13:00] VITALS: BP 141/101; PULSE 70; RESP 12; O2SAT 99
[2022-06-20 13:54] VITALS: BP 145/103; PULSE 74; RESP 14; O2SAT 99
[2022-06-20] MEDS: ONDANSETRON INJ 4 MG/2 ML VIAL IV PUSH (13:54)
[2022-06-20] MEDS: fentaNYL CITRATE INJ (*CRX) 100 MCG/2 ML VIAL IV PUSH (13:54)
[2022-06-20] MEDS: SODIUM CHLORIDE 0.9% IV 1,000 ML 999 ML IV CONT (13:54)
[2022-06-20 14:00] VITALS: BP 144/94; PULSE 68; RESP 14; O2SAT 98
[2022-06-20 15:56] VITALS: BP 133/88; PULSE 84; RESP 16; O2SAT 99
== END 2022-06-20 16:00 | disposition home or self-care (01) ==
PROVIDERS: General Practice; Emergency Provider Emergency Medicine; PCP Family Medicine
DX: R10.11 Right upper quadrant pain (principal); R11.0 Nausea; I25.10 Atherosclerotic heart disease of native coronary artery without angina pectoris; I10 Essential (primary) hypertension; E78.5 Hyperlipidemia, unspecified; Z79.82 Long term (current) use of aspirin
CPT/HCPCS: 36415; 74177; 76705; 80053; 81001; 83690; 85025; 96361; 96374; 96375; 99284; J2405; J3010; J7030; Q9967

== ENCOUNTER 2022-11-07 13:08 | Emergency (ER) | payer OTHER, SELFPAY ==
--- NOTE | 2022-11-07 13:52 | PC.NURSE ---
PT DECIDED TO WAIT ANY LONGER. REQUESTED TO LEAVE. IV REMOVED AND PT WAS ADVISED TO RETURN IF CONDITION WORSENS. AMBULATORY WITH A STEADY GAIT TO THE VEHICLE.
== END 2022-11-07 16:06 | disposition left against medical advice (07) ==
PROVIDERS: PCP Family Medicine
DX: R55 Syncope and collapse (principal); Z53.21 Procedure and treatment not carried out due to patient leaving prior to being seen by health care provider
CPT/HCPCS: 99199

== ENCOUNTER 2024-01-20 13:10 | Emergency (ER) | payer OTHER, SELFPAY ==
--- NOTE | ~2024-01-20 | XR_ITS ---
EXAMINATION: XR chest 2V DATE: 01/20/2024 14:05 INDICATION: Chest pain. Dizziness. Shortness of breath. TECHNIQUE: Frontal and lateral views of the chest were obtained. COMPARISON: Chest single view 01/24/2022 FINDINGS: There is mild atelectasis in left lower lung zone. No pleural effusion or pneumothorax. The heart size is normal. There are surgical changes in cervical spine. IMPRESSION: 1. Mild atelectasis in left lower lung zone. Reviewed, dictated and finalized at location A.
--- NOTE | 2024-01-20 13:17 | ECG_ITS ---
SEE SCANNED COPY FOR CONFIRMED REPORT MTDD
[2024-01-20 13:18] VITALS: BP 141/77; PULSE 82; RESP 20; TEMP 36.2; O2SAT 98
[2024-01-20 13:42] LABS: Basophils Percent Auto 0.4 % (0.2-1.2); Eosinophils Absolute Auto 0.1 K/mm3 (0-0.3); Hematocrit 44.8 % (42.0-52.0); Hemoglobin 15.3 g/dL (14.0-18.0); Immature Granulocyte Absolute 0.04 K/mm3 (0.00-0.031); Immature Granulocyte Percent A 0.4 % (0-0.5); Lymphocytes Absolute Auto 1.76 K/mm3 (0.9-3.2); Lymphocytes Percent Auto 18.9 % (18.3-44.2); Mean Corpuscular HGB Conc 34.2 g/dl (32-36); Mean Corpuscular Hemoglobin 30.3 pg (26-34); Mean Corpuscular Volume 88.7 fl (80-100); Mean Platelet Volume 10.5 fl (7.4-10.4); Monocytes Absolute Auto 0.7 K/mm3 (0.1-0.6); Monocytes Percent Auto 7.2 % (2.6-8.5); Neutrophils Absolute Auto 6.7 K/mm3 (1.3-6.7); Neutrophils Percent Auto 72.1 % (45.5-73.1); Platelet Count Result 278 k/mm3 (150-375); Red Blood Count 5.05 M/mm3 (4.6-6.20); Red Cell Distribution Width 13.5 % (11.5-14.5); White Blood Count 9.3 K/mm3 (4.5-10.0)
[2024-01-20 13:53] LABS: INR 1.1; Prothrombin Time 14.7 Seconds (11.1-14.7)
[2024-01-20 13:54] LABS: Partial Thromboplastin Time 34.6 Seconds (22.3-36.8)
[2024-01-20 13:59] LABS: Alanine Aminotransferase 52 U/L (6-50); Albumin Level 4.2 g/dL (3.5-5.1); Alkaline Phosphatase 96 U/L (38-126); Anion Gap 8 mmol/L (4-12); Aspartate Amino Transferase 30 U/L (17-59); Bilirubin,Total 1.4 mg/dL (0.2-1.3); Blood Urea Nitrogen 17 mg/dL (9-20); Calcium 8.7 mg/dL (8.4-10.2); Carbon Dioxide 22 mmol/L (22-30); Chloride 105 mmol/L (98-107); Estimated CRCL calculation 126 ml/min; Estimated Glomerular Filt Rate > 60; Glucose 137 mg/dL (65-110); Lipase 60 U/L (23-300); Potassium 3.6 mmol/L (3.4-5.0); Sodium 135 mmol/L (137-145)
[2024-01-20 14:10] LABS: Troponin I < 0.012 ng/mL (0.000-0.034)
[2024-01-20 14:23] VITALS: PULSE 68
[2024-01-20 14:24] VITALS: BP 130/84; PULSE 69; RESP 16; O2SAT 95
--- NOTE | 2024-01-20 14:57 | ED.GENADULT ---
HPI - General Adult General Chief complaint: Dizziness Stated complaint: dizziness Time Seen by Provider: 01/20/24 14:15 History of Present Illness HPI narrative: patient is a 48-year-old male who presents ER with dizziness. Sudden onset while he was sitting at home. He felt lightheaded like he might lose consciousness. He felt warm and flushed and slightly nauseated. He then took a Xanax. Symptoms have improved. Unsure if he was having an anxiety attack or something else. Denies fevers or chills. No chest pain or chest pressure. He did have brief funny feeling in his left shoulder. Related Data Home Medications Medication Instructions Recorded Confirmed aspirin 81 mg tablet,delayed 81 mg PO DAILY 01/06/22 01/24/22 release atorvastatin 40 mg tablet 40 mg PO DAILY 01/06/22 01/24/22 cyclobenzaprine 10 mg tablet 10 mg PO TID PRN Muscle Spasm 01/06/22 01/24/22 levothyroxine 50 mcg tablet 50 mcg PO DAILY 01/06/22 01/24/22 (Euthyrox) lisinopril 5 mg tablet 5 mg PO DAILY 01/06/22 01/24/22 metoprolol succinate 25 mg 25 mg PO DAILY 01/06/22 01/24/22 tablet,extended release 24 hr tramadol 50 mg tablet (Ultram) 50 mg PO PRN PRN Pain 01/06/22 01/24/22 Adult Aspirin 06/20/22 atorvastatin 80 mg tablet mg 06/20/22 levothyroxine 50 mcg tablet mcg 06/20/22 lisinopril 5 mg tablet mg 06/20/22 metoprolol succinate 25 mg mg PO 06/20/22 tablet,extended release 24 hr ticagrelor 90 mg tablet (Brilinta) mg 06/20/22 Allergies Allergy/AdvReac Type Severity Reaction Status Date / Time lorazepam Allergy Unknown Verified 11/07/22 14:52 Review of Systems Review of Systems: All systems reviewed & are unremarkable except as noted in HPI and below Constitutional: Constitutional: Reports no additional constitutional complaints ENT: Reports dizziness, Reports nasal congestion and Denies sore throat Cardiovascular: Cardiovascular: Reports no additional cardiovascular complaints Respiratory: Respiratory: Reports no additional respiratory complaints Gastrointestinal: Gastrointestinal: Reports no additional gastrointestinal complaints Musculoskeletal: Musculoskeletal: Reports no additional musculoskeletal complaints Neurologic: Reports system reviewed and no additional complaints, except as documented PMFSH Past Medical History Medical History (Updated 01/20/24 @ 15:03 by Richard Ott MD) H/O placement of stent in anterior descending branch of left coronary artery s/p fib arrest, LAD stent Hyperlipidemia Hypertension Surgical History Surgical History (Updated 11/07/22 @ 14:52 by Maribel Marx) No history of previous surgery Family History Family History (System 11/07/22 @ 14:52 by Maribel Marx) Father Hypertension Family history of diabetes mellitus in first degree relative Mother Hypertension Family history of diabetes mellitus in first degree relative CHF (congestive heart failure) Cause of Social History Social History (System 11/07/22 @ 14:52 by Maribel Marx) Years smoked: 32 Smoking status: Former smoker Smokeless tobacco user: chewing tobacco Smoking end date: 09/09/12 Alcohol intake: current Drinks per week: 1 Substance use type: does not use Spiritual care concerns: No Exam Narrative: GENERAL: Well-appearing, well-nourished, and in no acute distress. HEAD: Normocephalic, atraumatic. EYES: PERRL and EOMI. ENT: Mucous membranes moist. Normal TMs and ear canals. CHEST: Clear to auscultation. No respiratory distress. HEART: Regular rate and rhythm. Normal peripheral pulses. ABDOMEN: Soft, nontender, nondistended. EXTREMITIES: Normal range of motion. No edema. SKIN: Warm, dry, no rash. NEURO:Alert and oriented x3. PSYCH: Normal mood and affect. Course Course Emergency Course: No reproducible dizziness here. Patient is asymptomatic at this time. Labs reassuring. Patient had no chest pain. Reports his ear did pop on exam. D
[2024-01-20 15:00] VITALS: BP 135/91; PULSE 70; RESP 16; O2SAT 96
[2024-01-20 15:20] VITALS: BP 128/76; PULSE 68; RESP 16; O2SAT 97
== END 2024-01-20 15:30 | disposition home or self-care (01) ==
PROVIDERS: Emergency Provider Emergency Medicine; PCP Family Medicine
DX: R42 Dizziness and giddiness (principal); Z79.82 Long term (current) use of aspirin; E78.5 Hyperlipidemia, unspecified; I10 Essential (primary) hypertension; Z87.891 Personal history of nicotine dependence
CPT/HCPCS: 36415; 71046; 80053; 83690; 84484; 85025; 85610; 85730; 93005; 99284

== ENCOUNTER 2024-11-20 14:43 | Emergency (ER) | payer OTHER, SELFPAY ==
--- OUTSIDE RECORDS SUMMARY | 2024-11-20 14:53 | XMS_ITS | Encounter Summary ---
Author Organization [facility] Healthcare Address [address] [place] [address] Care Team Providers Care Chief Chemist Name Role Phone Amarjit Ontiveros MD Primary Care Provider [phone] Encounter Details Date Type Department Care Team (Late st Contact Info) Description 01/20/2024 Orders Only [facility] Health Information Management [address] [place] [id number] Scanning, Provider Social History Tobacco Use Types Packs/Day Years Used Date Smoking Tobacco: Former Cigarettes Q uit: 05/28/2013 Smokeless Tobacco: Current Chew Alcohol Use Standard Drinks/Week Comments Yes 1 (1 standard drink = 0.6 oz pur e alcohol) seldomly Personal Safety Answer Date Recorded Getting School Help Needed Denies 08/26 Sex and Gender Information Value Date Recorded Sex Assigned at Not on file Legal Sex Male 1:16 AM [employer]RI[employer] Gender Identity Not on file Sexual Orientation Not on file documented as of this encounter Plan of Treatment Not on file documented as of this encounter Procedures Procedure Name Priority Date/Time Associated Diagnosis Comments SCAN - RADIOLOGY/IMAGING 01/20/2024 documented in this encounter Results * SCAN - RADIOLOGY/IMAGING (01/20/2024) Anatomical Region Laterality Modality Other us Provider Scanning Final Result documented in this encounter Visit Diagnoses Not on filedocumented in this encounter Care Teams Chief Chemist Relationship Specialty Start [place] [id number] [address] PCP - General Family Practice 01/08/22 documented as of this encounter
--- OUTSIDE RECORDS SUMMARY | 2024-11-20 14:53 | XMS_ITS | Clinical Summary ---
Author Organization [facility] Address [address], [address] [address] Phone Care Team Providers Care Business Asst Name Role Phone Amarjit Ontiveros MD Primary Care Provider Medications Brilinta 90 MG Tablet Take 90 mg by mouth 2 times daily. 06/27/2022 Active sertraline (ZOLOFT) 50 MG Tablet Take 50 mg by mouth daily. 04/23/2022 Active sucralfate (CARAFATE) 1 GM Tablet Take 1 Tablet by mouth 3 times daily. 05/01/2022 Active omeprazole (PriLOSEC) 40 MG CAPSULE DELAYED RELEASE Take 40 mg by mouth daily. 04/22/2022 Active metoprolol Succinate (TOPROL-XL) 25 MG TABLET SR 24 HR Take 25 mg by mouth daily. 07/04/2022 Active lisinopril (PRINIVIL, ZESTRIL) 5 MG Tablet Take 5 mg by mouth daily. 05/25/2022 Active levothyroxine (SYNTHROID) 50 MCG Tablet Take 50 mcg by mouth daily. 07/04/2022 Active dicyclomine (BENTYL) 20 MG Tablet Take 20 mg by mouth 3 times daily. 06/20/2022 Active atorvastatin (LIPITOR) 80 MG Tablet Take 80 mg by mouth daily. 05/25/2022 Active Social History Tobacco Use Types Packs/Day Years Used Date Smoking Tobacco: Never Assessed Sex and Gender Information Value Date Recorded Sex Assigned at Not on file Legal Sex Male 11:24 AM CDT Gender Identity Not on file Sexual Orientation Not on file Plan of Treatment Health Maintenance Due Date Last Done Comments Hepatitis C Virus (HCV) Screening 1973 TdaP Immunization 1973 Hepatitis B Immunization (1 of 3 - 19+ 3-dose series) 1992 Colonoscopy 2018 Colorectal Cancer Screening 2018 Cologuard 2023 Immunochemical Fecal Occult Blood 2023 Pneumococcal Immunization (5 0+ years) (1 of 1 - PCV) 2023 Zoster Immunization (1 of 2) 2023 Influenza Immunization (#1) 2024 SARS-COV-2 Immunization (1 - season) 2024 Respiratory Syncytial Virus (RSV) Immunization (Adult) (1 - 1-dose 75+ series) 2048 Meningococcal Immunization (ACWY) Aged Out No longer eligible based on patient's age to complete this topic Pneumococcal Immunization Combined Aged Out No longer eligible based on patient's age to complete this topic Rotavirus Immunization Aged Out No lo nger eligible based on patient's age to complete this topic Insurance MEDICAID [employer] Care Teams Business Asst Relationship Specialty Start [place] [address] [place] [address] PCP - General Family Medicine 06/20/22
--- OUTSIDE RECORDS SUMMARY | 2024-11-20 14:53 | XMS_ITS | Referral Summary ---
Author Organization [facility] [address] Address [address] [place] [address] Care Team Providers Care Stores Naval Name Role Phone Amarjit Ontiveros MD Primary Care Provider [phone]- [phone] Allergies No known active allergies Medications aspirin 81 mg tablet take 1 tablet by oral route every day 0 0 3 Active cyclobenzaprine (FLEXERIL) 10 mg tablet Take 1 tablet (10 mg total) by mouth 2 (two) times a day as needed for muscle spasms Active Euthyrox 50 mcg tablet TAKE 1 TABLET BY MOUTH ONCE DAILY . APPOINTMENT REQUIRED FOR FUTURE REFILLS 0 Active ALPRAZolam (XANAX) 0.5 mg tablet Take by mouth 3 (three) times a day as needed 2 Active lisinopriL (PRINIVIL,ZESTR [place]) 5 mg tabletIndicatio ns:HTN (hypertension), benign Take 1 tablet (5 mg total) by mouth daily 90 tablet 3 4 Active metoprolol XL (TOPROL-XL) 25 mg extended release tablet Take 1 tablet (25 mg total) by mouth daily 90 tablet 3 4 Active rivaroxaban (XARELTO) 2.5 mg tablet Take 1 tablet (2.5 mg total) by mouth 2 (two) times a day 180 tablet 3 4 Active rosuvastatin (CRESTOR) 20 mg tabletIndicatio ns:Coronary artery disease of [place] artery of [place] heart with stable angina pectoris Take 1 tablet (20 mg total) by mouth daily 90 tablet 3 4 08/04/20 25 Active Active Problems Problem Noted Date Diagnosed Date Morbid obesity with BMI of 40.0-44.9, adult 11/08 Morbid obesity 03/29/2023 Hypersomnolence 03/29/2023 Lightheaded 11/29/2020 Palpitations 11/29/2020 Atypical chest pain 08/13/2018 History of tobacco abuse 05/28/2017 Hypothyroidism 05/28/2017 Coronary artery disease of n ative artery of [place] heart with stable angina pectoris 09/21/2014 Overview (12/15/2016): Coronary arteriosclerosis in [place] artery HTN (hypertension), benign 09/21/2014 Overview (12/15/2016): Benign essential hypertension Hyperlipidemia LDL goal <70 09/21/2014 Overview (12/15/2016): Mixed hyperlipidemia Social History Tobacco Use Types Packs/Day Years Used Date Smoking Tobacco: Former Cigarettes Q uit: 05/28/2013 Smokeless Tobacco: Current Chew Tobacco Cessation:Ready to Q uit: Not Asked; Counseling Given: Not Answered Alcohol Use Standard Drinks/Week Comments Yes 1 (1 standard drink = 0.6 oz pur e alcohol) seldomly Personal Safety Answer Date Recorded Getting School Help Needed Denies 08/26 Sex and Gender Information Value Date Recorded Sex Assigned at Not on file Legal Sex Male 1:16 AM ASSISTANT FRONT END MANAGER Gender Identity Not on file Sexual Orientation Not on file Last Filed Vital Signs Vital Sign Reading Time Taken Comments Blood Pressure 118/78 08/04/2024 11:44 AM ASSISTANT FRONT END MANAGER Pulse 78 08/04/2024 11:44 AM ASSISTANT FRONT END MANAGER Temperature 36.7 C (98 F) 11/07/2022 5:34 PM ASSISTANT FRONT END MANAGER Respiratory Rate 16 11/07/2022 5:34 PM ASSISTANT FRONT END MANAGER Oxygen Saturation 95% 08/04/2024 11:44 AM ASSISTANT FRONT END MANAGER Inhaled Oxygen Concentration - - Weight 122.9 kg (271 lb) 08/04/2024 11:44 AM ASSISTANT FRONT END MANAGER Height 175.3 cm (5' 9 ) 08/04/2024 11:44 AM ASSISTANT FRONT END MANAGER Body Mass Index 40.02 08/04/2024 11:44 AM ASSISTANT FRONT END MANAGER Plan of Treatment Not on file Medical Devices Implanted Type Area Siebel Developer Device Identifier Shelf Expiration Date Model / Serial / Lot Impella Cp Percutaneous Left Ventricular Assist Device [id number] - [id number] Implanted:Qty: 1 on 01/07/2022 by Héctor Funes MD at [facility] LVAD Right: Femoral [employer] [id number] / / Medtronic Inc Resolute Gurwinder 4.5mm 2.1-2.7fr 15mm 140cm Rapid Exchange [id number] - [id number] Implanted:Qty: 1 on 01/07/2022 by Héctor Funes MD at [facility] Stent Right: Femoral Medtronic Inc [id number] / / Description:Circ Medtronic Inc Resolute Gurwinder 4mm 2.1-2.7fr 12mm 140cm Rapid Exchange Radiopaque [id number] - [id number] Implanted:Qty: 1 on 01/07/2022 by Héctor Funes MD at [facility] Stent Right: Femoral Medtronic Inc [id number] / / Description:LAD Explanted Type Area Siebel Developer Device Identifier Shelf Expiration Date Model / Serial / Lot Alden [employer] Jordan Synergy Xd Monorail 4mm 12mm 144cm Delivery System 1 Access Port [id number] - [id number] Explanted:Qty: 1 on 01/07/2022 at [facility] Stent Right: Femoral [employer] Jordan [id number] / / Description:Circ [employer] Jordan Synergy Xd Monorail 4.5mm 16mm 144cm Delivery System 1 Access [id number] - [id number] Explanted:Qty: 1 on 01/07/2022 at [facility] Stent Right: Femoral [employer] Jordan [id number] / / Description:LAD [facility] AETNA [facility] AETNA [facility] Advance Directives For more information, please contact: [phone] * Full Code (Latest Code Status on File) Date Activated Date Inactivated Comments 01/07/2022 1:45 AM 01/10/2022 6:00 PM Care Teams Stores Naval Relationship Specialty Start [place] [id number] [address] PCP - General Family Practice 01/08/22
--- OUTSIDE RECORDS SUMMARY | 2024-11-20 14:53 | XMS_ITS | Clinical Summary ---
Author Organization [facility] [address] Address [address] [place] [address] Care Team Providers Care Housekeeping Coordinator Name Role Phone Amarjit Ontiveros MD Primary Care Provider [phone]- [phone] Allergies No known active allergies Medications aspirin [...] 20 mg tabletIndicatio ns:Coronary artery disease of [place] artery of [place] heart with stable angina pectoris Take 1 [...] artery disease of n ative artery of [place] heart with stable angina pectoris 09/21/2014 Overview (12/15/2016): Coronary arteriosclerosis in [place] artery HTN (hypertension), benign 09/21/2014 Overview (12/15/2016): Benign essential hypertension Hyperlipidemia LDL goal <70 09/21/2014 Overview (12/15/2016): Mixed hyperlipidemia Medical History Medical History Date Comments Hx Other Medical pancreatitis; C omments: LMG 09/21/2014 - Hypertension Family History Medical History Relation Name Comments Hypertension Father 2 Hypertension; Heart failure Mother 2 Congestive Hea rt Failure; Cause of : Congestive Heart Failure Relation Name Status Comments Father 1 Alive Father 2 Mother 1 (Age 76) Mother 2 Social History Tobacco Use Types Packs/Day Years [...] on file Legal Sex Male 1:16 AM APPLICATION COORDINATOR Gender Identity Not on file Sexual Orientation Not on file Obstetrics History Last Filed Vital Signs Vital Sign Reading Time Taken Comments Blood Pressure 118/78 08/04/2024 11:44 AM APPLICATION COORDINATOR Pulse 78 08/04/2024 11:44 AM APPLICATION COORDINATOR Temperature 36.7 C (98 F) 11/07/2022 5:34 PM APPLICATION COORDINATOR Respiratory Rate 16 11/07/2022 5:34 PM APPLICATION COORDINATOR Oxygen Saturation 95% 08/04/2024 11:44 AM APPLICATION COORDINATOR Inhaled Oxygen Concentration - - Weight 122.9 kg (271 lb) 08/04/2024 11:44 AM APPLICATION COORDINATOR Height 175.3 cm (5' 9 ) 08/04/2024 11:44 AM APPLICATION COORDINATOR Body Mass Index 40.02 08/04/2024 11:44 AM APPLICATION COORDINATOR Plan of Treatment Health Maintenance Due Date Last Done Comments Colon Cancer Screening-Colonoscopy 1973 Depression Screening 1973 Hepatitis C Screening 1973 Prostate Cancer Screening-PSA 1973 DTaP/Tdap/Td Vaccine (1 - Tdap) 1984 Hepatitis B Screening 1991 Regular Well Visit/Exam 18-64 1991 Pneumococcal vaccine <65 (1 of 2 - PCV) 1992 Zoster Vaccine (1 of 2) 2023 Influenza Vaccine (#1) 2024 Medical Devices Implanted Type Area Seating And Mobility Technologist Device Identifier Shelf Expiration Date Model / Serial / Lot Impella Cp Percutaneous Left Ventricular Assist Device [id number] - [id number] Implanted:Qty: 1 on 01/07/2022 by Héctor Funes MD at [facility] LVAD Right: Femoral [employer] [id number] / / Medtronic Inc Resolute Gurwinder 4.5mm 2.1-2.7fr 15mm 140cm Rapid Exchange [id number] - [id number] Implanted:Qty: 1 on 01/07/2022 by Héctor Funes MD at [facility] Stent Right: Femoral Medtronic Inc [id number] / / Description:Circ Medtronic Inc Resolute Gurwinder 4mm 2.1-2.7fr 12mm 140cm Rapid Exchange Radiopaque [id number] - [id number] Implanted:Qty: 1 on 01/07/2022 by Héctor Funes MD at [facility] Stent Right: Femoral Medtronic Inc [id number] / / Description:LAD Explanted Type Area Seating And Mobility Technologist Device Identifier Shelf Expiration Date Model / Serial / Lot [employer] Jordan Synergy Xd Monorail 4mm 12mm 144cm Delivery System 1 Access Port [id number] - [id number] Explanted:Qty: 1 on 01/07/2022 at [facility] Stent Right: Femoral [employer] Jordan [id number] / / Description:Circ [employer] Jordan Synergy Xd Monorail 4.5mm 16mm 144cm Delivery System 1 Access [id number] - [id number] Explanted:Qty: 1 on 01/07/2022 at [facility] Stent Right: Femoral H[employer] Jordan [id number] / / Description:LAD [facility] AETNA BETTER [facility] [place] Advance Directives For more information, please contact: [phone] * Full Code (Latest Code Status on File) Date Activated Date Inactivated Comments 01/07/2022 1:45 AM 01/10/2022 6:00 PM Care Teams Housekeeping Coordinator Relationship Specialty Start [place] [address] [address] [address] PCP - General Family Practice 01/08/22
--- OUTSIDE RECORDS SUMMARY | 2024-11-20 14:53 | XMS_ITS | Clinical Summary ---
Author Organization [facility] Address [address] [place] [address] Care Team Providers Care Program Analyst Name Role Phone Amarjit Ontiveros MD Primary Care Provider [phone] Allergies No known active allergies Medications aspirin EC (ASPIRIN EC) 81 MG tablet Take 1 tablet (81 mg total) by mouth daily. Active metoprolol tartrate 50 MG tablet Take 1 tablet (50 mg total) by mouth daily. Active sertraline (ZOLOFT) 50 MG tabletIndications: Anxiety Take 1 tablet (50 mg total) by mouth daily. 90 tablet 1 10/25/19 23 Active metoprolol succinate ER (TOPROL-XL) 25 MG 24 hr tablet Take 1 tablet (25 mg total) by mouth daily. Active XARELTO 2.5 MG tablet Take 1 tablet (2.5 mg total) by mouth 2 (two) times daily. Active lisinopril (PRINIVIL) 5 MG tabletIndications: Primary hypertension Take 1 tablet (5 mg total) by mouth daily. Please call office to schedule your [address] Ontiveros 30 tablet 09/06/20 23 Active benzonatate (TESSALON PERLES) 100 MG capsuleIndications :Acute cough,Bronchitis Take 1 capsule (100 mg total) by mouth 3 (three) times daily as needed. 40 capsule 10/23/19 24 Active atorvastatin (LIPITOR) 80 MG tabletIndications: Mixed hyperlipidemia Take 1 tablet (80 mg total) by mouth daily. 90 tablet 01/08/20 24 Active cyclobenzaprine (FLEXERIL) 10 MG tabletIndications: Neck pain,Chronic right shoulder pain Take 1 tablet (10 mg total) by mouth 3 (three) times daily as needed for Muscle Spasms. 90 tablet 1 03/20/20 24 Active levothyroxine (SYNTHROID) 50 MCG tabletIndications: Acquired hypothyroidism Take 1 tablet (50 mcg total) by mouth daily. 90 tablet 1 03/31/20 24 Active ALPRAZolam (XANAX) 0.5 MG tabletIndications: Anxiety TAKE 1 TABLET BY MOUTH THREE TIMES DAILY NEEDED FOR ANXIETY 42 tablet 09/30/19 25 Active predniSONE (DELTASONE) 20 MG tabletIndications: Acute bronchitis, unspecified organism Take two tablets once a day for five days 10 tablet 10/12/19 25 Active albuterol sulfate HFA 108 (90 Base) MCG/ACT inhalerIndications :Acute bronchitis, unspecified organism INHALE 2 PUFFS BY MOUTH EVERY 6 HOURS NEEDED FOR WHEEZING 9 g 5 11/02/19 25 Active rosuvastatin (CRESTOR) 20 MG tablet Take 1 tablet (20 mg total) by mouth daily. Active predniSONE (DELTASONE) 20 MG tabletIndications: Acute cough Take two tablets once a day for five times 10 tablet 11/06/19 25 Active ciprofloxacin (CIPRO) 500 MG tabletIndications: Colitis Take 1 tablet (500 mg total) by mouth 2 (two) times daily for 10 days. 20 tablet 11/18/19 25 025 Active methylPREDNISolone , MARY, (MEDROL DOSEPAK) 4 MG tabletIndications: Bronchitis 6 TABLETS ON DAY ONE, 5 TABLETS DAY TWO, 4 TABLETS DAY THREE, 3 TABLETS DAY FOUR, 2 TABLETS DAY FIVE, AND 1 TABLET DAY SIX 1 each 10/23/19 24 025 Discontinued albuterol sulfate HFA 108 (90 Base) MCG/ACT inhalerIndications :Acute bronchitis, unspecified organism Inhale 2 puffs into the lungs every 6 (six) hours as needed for Wheezing. 6.7 g 10/12/19 25 025 Discontinued doxycycline hyclate (VIBRAMYCIN) 100 MG capsuleIndications :Acute cough Take 1 capsule (100 mg total) by mouth 2 (two) times daily for 10 days. 20 capsule 11/06/19 25 025 metroNIDAZOLE (FLAGYL) 500 MG tabletIndications: Colitis Take 1 tablet (500 mg total) by mouth 3 (three) times daily for 7 days. 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 Chewing tobacco nicotine dependence, uncomplicat ed 02/11/2017 Coronary artery disease of n ative artery of [place] heart with stable angina pectoris 09/21/2014 Overview (10/04/2022): Coronary arteriosclerosis in [place] artery Hyperlipidemia LDL goal <70 09/21/2014 Overview (10/04/2022): Mixed hyperlipidemia HTN (hypertension), benign 09/21/2014 Overview (10/04/2022): Benign essential hypertension Cough 07/05/2012 Sore throat 07/05/2012 Acute sinusitis 06/15/2012 High cholesterol Disease of thyroid gland Hypertension Resolved Problems Problem Noted Date Diagnosed Date Resolved Date Encounter for preventive health examination 06/15/2012 10/08/2022 Encounters Date Type Department Care Team Description 11/16/2024 Telephone [facility] Family & Internal Medicine [address] [address] Amarjit Ontiveros MD Question 11/16/2024 Telephone [facility] Family & Internal Medicine [facility] [address] [place] [address] Amarjit Ontiveros MD Error 11/06/2024 2:00 PM SHEET PILE DRIVER OPERATOR Office Visit [address] [address] Amarjit Ontiveros MD Follow Up (Pt was seen in the walk in bronchitis ); Cough; Congestion; Colitis (Pt states he is having a flare up ) 11/06/2024 Telephone [facility] Internal [address] [address] Amarjit Ontiveros MD Medication Request 11/06/2024 Travel 10/19/[address] [address] Amarjit Ontiveros MD Medication 10/12/2024 2:20 PM SHEET PILE DRIVER OPERATOR Office Visit [address] [address] Amarjit Ontiveros MD Follow Up 10/12/2024 Travel from Last 3 Months Family History Medical History Relation Comments A-Fib Father Diabetes Father Diabetes Mother Heart Disease Mother Relation Status Comments Father Alive Mother Social History Tobacco Use Types Packs/Day Years Used Date Smoking Tobacco: Never Smokeless Tobacco: Current Chew Tobacco Cessation:Ready to Q uit: Not Asked; Counseling Given: No Alcohol Use Standard Drinks/Week Comments Yes 0 (1 standard drink = 0.6 oz pur e alcohol) rarely PHQ-2 Answer Date Recorded Patient Health Questionnaire-2 Score 0 10/12/2024 Sex and Gender Information Value Date Recorded Sex Assigned at Male 10/12/2024 2:03 PM SHEET PILE DRIVER OPERATOR Legal Sex Male 5:14 PM CDT Gender Identity Not on file Sexual Orientation Not on file Last Filed Vital Signs Vital Sign Reading Time Taken Comments Blood Pressure 128/83 11/06/2024 2:06 PM SHEET PILE DRIVER OPERATOR Pulse 85 11/06/2024 2:06 PM SHEET PILE DRIVER OPERATOR Temperature 36.3 C (97.4 F) 11/06/2024 2:06 PM SHEET PILE DRIVER OPERATOR Respiratory Rate 14 11/06/2024 2:06 PM SHEET PILE DRIVER OPERATOR Oxygen Saturation 96% 11/06/2024 2:06 PM SHEET PILE DRIVER OPERATOR Inhaled Oxygen Concentration - - Weight 128.8 kg (284 lb) 11/06/2024 2:06 PM SHEET PILE DRIVER OPERATOR Height 175.3 cm (5' 9 ) 11/06/2024 2:06 PM SHEET PILE DRIVER OPERATOR Body Mass Index 41.94 11/06/2024 2:06 PM SHEET PILE DRIVER OPERATOR Plan of Treatment Upcoming Encounters Date Type Department Care Team (Late st Contact Info) Description 12/07/2024 11:40 AM CDT Office Visit [facility] Family & Internal Medicine - [place] [address] [place] [address] [place] [address] [place] [address] Health Maintenance Due Date Last Done Comments Colorectal Cancer Screening Colonoscopy (10 Years) 1973 Pneumococcal Vaccine: Pediat rics (0 to 5 Years) and At-Risk Patients (6 to 64 Years) (1 of 2 - PCV) 1979 Hepatitis C 1991 DTaP, Tdap and Td Vaccines ( 1 - Tdap) 1992 Hepatitis B Vaccines (1 of 3 - 19+ 3-dose series) 1992 Annual Physical 01/24/2022 01/24/2021 ASCVD LDL 12/22/2022 12/22/2021 Zoster Vaccines (1 of 2) 2023 COVID-19 Vaccine (1 - 2023-2 5 season) 2024 Influenza Adult (#1) 2024 PHQ-2 (Physician Beemer) Completed 10/12/2024 Meningococcal B Vaccine Aged Out No l onger eligible based on patient's age to complete this topic Meningococcal Vaccine Aged Out No gloria erasmo eligible based on patient's age to complete this topic RSV Immunizations Under 20 Months Aged Out No longer eligible based on patient's age to complete this topic Procedures Procedure Name Priority Date/Time Associated Diagnosis Comments LIPID PANEL Routine 12/22/2021 2:59 PM CDT Acquired hypothyroidism from Last 3 Months or Most Recently Relevant to Health Maintenance Results * LIPID PANEL (12/22/2021 2:59 PM CDT) CHOLESTEROL 129 <200 mg/dL [facility] HDL 43 > OR = 40 mg/dL [facility] TRIGLYCERIDES 115 <150 mg/dL [facility] LDL (CALCULATED) 66 mg/dL (calc) [facility] Comment: Reference range: <100 Desirable range <100 mg/dL for primary prevention; <70 mg/dL for patients with CHD or diabetic patients with > or = 2 CHD risk factors. LDL-C is now calculated using the Kendall-Dawson calculation, which is a validated novel method providing better accuracy than the Friedewald equation in the estimation of LDL-C. Kendall SS et al. SAI. 2013;310(19): 6867-1898 (http://education.[employer]/faq/QSQ258) CHOL/HDL RATIO 3.0 <5.0 (calc) [facility] NON HDL CHOLESTEROL 86 <130 mg/dL (calc) [facility] Comment: For patients with diabetes plus 1 major ASCVD risk factor, treating to a non-HDL-C goal of <100 mg/dL (LDL-C of <70 mg/dL) is considered a therapeutic option. 12/22/2021 2:59 PM CDT 12/23/2021 5:24 PM CDT us Amarjit Ontiveros MD LABORATORY Final Resul t [facility] [address] [place] [address] from Last 3 Months or Most Recently Relevant to Health Maintenance Insurance AETNA Care Teams Program Analyst Relationship Specialty Start [place] [address] [place] [address] PCP - General FAMILY PRACTICE 06/27/21
--- OUTSIDE RECORDS SUMMARY | 2024-11-20 14:53 | XMS_ITS | Clinical Summary ---
Author Organization [facility] Address [address] [place] [address] Phone Care Team Providers Care Office Workforce Planner Name Role Phone Ciro Isaacs MD Primary Care Provider [phone] Allergies No known active allergies Medications metoprolol succinate (TOPROL XL) 100 mg Extended Release 24 hour tablet Take 100 mg by mouth daily. Active atorvastatin (LIPITOR) 10 mg tablet Take 10 mg by mouth late in the day. Active lisinopril (PRINIVIL) 5 mg tablet Take 5 mg by mouth daily. Active aspirin (ECOTRIN EC) 81 mg Tablet, Delayed Release (E.C.) Take 81 mg by mouth daily. Active sertraline (ZOLOFT) 50 mg tablet Take 50 mg by mouth daily. Active Active Problems Problem Noted Date Diagnosed Date CMT (Xwqgoih-Vnhpc-Zrsnq disease) 02/13/2017 Chronic right shoulder pain 02/13/2017 Chewing tobacco dependence 02/11/2017 Family History Medical History Relation Name Comments Diabetes Father Other Father Diabetes Mother Heart Disease Mother Peripheral Neuropathy Other CMT Peripheral Neuropathy Sister CMT Relation Name Status Comments Father Alive Mother Other Sister Social History Tobacco Use Types Packs/Day Years Used Date Smoking Tobacco: Former Cigarettes Q uit: 2013 Smokeless Tobacco: Current Comments:1 CAN EVERY 2 DAYS Alcohol Use Standard Drinks/Week Comments No 0 (1 standard drink = 0.6 oz pur e alcohol) Sex and Gender Information Value Date Recorded Sex Assigned at Not on file Legal Sex Male 10:53 AM CDT Gender Identity Not on file Sexual Orientation Not on file Last Filed Vital Signs Vital Sign Reading Time Taken Comments Blood Pressure 122/86 05/13/2018 2:29 PM CDT Pulse 89 05/13/2018 2:29 PM CDT Temperature - - Respiratory Rate - - Oxygen Saturation 97% 05/13/2018 2:29 PM CDT Inhaled Oxygen Concentration - - Weight 111.1 kg (245 lb) 05/13/2018 2:29 PM CDT Height 175.3 cm (5' 9 ) 05/13/2018 2:29 PM CDT Body Mass Index 36.18 05/13/2018 2:29 PM CDT Plan of Treatment Health Maintenance Due Date Last Done Comments DTAP/TDAP/TD VACCINES (1 - Tdap) 1992 HEPATITIS B VACCINES (1 of 3 - 19+ 3-dose series) 03/09 COLORECTAL SCREENING 2018 Colorectal Cancer Screening 2018 FIT-DNA Q 3 years 2018 FIT/FOBT Q 1 year 2018 Flex Sig/CT Colonography Q 5 years 2018 ZOSTER VACCINE (1 of 2) 2023 INFLUENZA VACCINE (#1) 2024 Insurance POS II Care Teams Office Workforce Planner Relationship Specialty Start Date End Date Ciro Isaacs MD PCP - General Urology 02/11/17
--- NOTE | 2024-11-20 15:32 | PC.NURSE ---
Call x1 for triage with no reply.
--- NOTE | 2024-11-20 16:48 | PC.NURSE ---
pt stated he was probably going to leave due to wait time. when pt called for triage, no answer.
--- OUTSIDE RECORDS SUMMARY | 2024-11-20 16:56 | XMS_ITS | Clinical Summary ---
Author Organization [facility] Address [address], [address] [address] Phone Care Team Providers Care Complaint Investigator Name Role Phone Amarjit Ontiveros MD Primary [...] Insurance MEDICAID AETNA BETTER [employer] Care Teams Complaint Investigator Relationship Specialty Start [place] [address] [place] [address] PCP - General Family Medicine 06/20/22
--- OUTSIDE RECORDS SUMMARY | 2024-11-20 16:56 | XMS_ITS | Clinical Summary ---
Author Organization 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, uncomplicat ed 02/11/2017 Coronary artery disease of n ative artery of [place] heart with stable angina pectoris 09/21/2014 Overview (10/04/2022): Coronary arteriosclerosis in [place] artery Hyperlipidemia LDL goal <70 09/21/2014 Overview (10/04/2022): Mixed hyperlipidemia HTN (hypertension), benign 09/21/2014 Overview (10/04/2022): Benign essential hypertension Cough 07/05/2012 Sore throat 07/05/2012 Acute sinusitis 06/15/2012 High cholesterol Disease of thyroid gland Hypertension Resolved Problems Problem Noted Date Diagnosed Date Resolved Date Encounter for preventive health examination 06/15/2012 10/08/2022 Encounters Date Type Department Care Team Description 11/16/2024 Telephone [facility] [address] [address] Amarjit Ontiveros MD Question 11/16/2024 Telephone [facility] [address] [place] [address] Amarjit Ontiveros MD Error 11/06/2024 2:00 PM COURSE DEVELOPER Office Visit [address] [address] Amarjit Ontiveros MD Follow Up (Pt was seen in the walk in bronchitis ); Cough; Congestion; Colitis (Pt states he is having a flare up ) 11/06/2024 Telephone [facility] [address] [address] Amarjit Ontiveros MD Medication Request 11/06/2024 Travel 10/19/[address] [address] Amarjit Ontiveros MD Medication 10/12/2024 2:20 PM COURSE DEVELOPER Office Visit [address] [address] Amarjit Ontiveros MD Follow Up 10/12/2024 Travel [...] Sex Assigned at Male 10/12/2024 2:03 PM COURSE DEVELOPER Legal Sex Male 5:14 PM CDT Gender Identity Not on file Sexual Orientation Not on file Last Filed Vital Signs Vital Sign Reading Time Taken Comments Blood Pressure 128/83 11/06/2024 2:06 PM COURSE DEVELOPER Pulse 85 11/06/2024 2:06 PM COURSE DEVELOPER Temperature 36.3 C (97.4 F) 11/06/2024 2:06 PM COURSE DEVELOPER Respiratory Rate 14 11/06/2024 2:06 PM COURSE DEVELOPER Oxygen Saturation 96% 11/06/2024 2:06 PM COURSE DEVELOPER Inhaled Oxygen Concentration - - Weight 128.8 kg (284 lb) 11/06/2024 2:06 PM COURSE DEVELOPER Height 175.3 cm (5' 9 ) 11/06/2024 2:06 PM COURSE DEVELOPER Body Mass Index 41.94 11/06/2024 2:06 PM COURSE DEVELOPER Plan of Treatment Upcoming Encounters Date Type Department Care Team (Late st Contact Info) Description 12/07/2024 11:40 AM CDT Office Visit [facility] Family & Internal Medicine - [place] [address] [place] [address] [place] [address] [place] [address] Health Maintenance Due Date Last [...] 2024 Influenza Adult (#1) 2024 PHQ-2 (Physician [place]) Completed 10/12/2024 Meningococcal B Vaccine Aged Out [...] LDL-C. Kendall SS et al. SAI. 2013;310(19): 2898-6493 (http://education.[employer]/faq/EFY024) CHOL/HDL RATIO 3.0 <5.0 (calc) [facility] [...] [facility] [address] [place] [address] from Last 3 Months or Most Recently Relevant to Health Maintenance Insurance [employer] Care Teams Property Technician Relationship Specialty Start [place] [address] [place] [address] PCP - General FAMILY PRACTICE 06/27/21
--- OUTSIDE RECORDS SUMMARY | 2024-11-20 16:56 | XMS_ITS | Clinical Summary ---
Author Organization [facility] [address] Address [address] [place] [address] Care Team Providers Care Boat Cleaning Supervisor Name Role Phone Amarjit Ontiveros MD Primary Care Provider [phone] Allergies No known active allergies Medications aspirin [...] 20 mg tabletIndicatio ns:Coronary artery disease of [place] artery of [place] heart with stable angina pectoris Take 1 [...] artery disease of n ative artery of [place] heart with stable angina pectoris 09/21/2014 Overview (12/15/2016): Coronary arteriosclerosis in [place] artery HTN (hypertension), benign 09/21/2014 Overview (12/15/2016): [...] on file Legal Sex Male 1:16 AM STILL OPERATOR HELPER Gender Identity Not on file Sexual Orientation Not on file Obstetrics History Last Filed Vital Signs Vital Sign Reading Time Taken Comments Blood Pressure 118/78 08/04/2024 11:44 AM STILL OPERATOR HELPER Pulse 78 08/04/2024 11:44 AM STILL OPERATOR HELPER Temperature 36.7 C (98 F) 11/07/2022 5:34 PM STILL OPERATOR HELPER Respiratory Rate 16 11/07/2022 5:34 PM STILL OPERATOR HELPER Oxygen Saturation 95% 08/04/2024 11:44 AM STILL OPERATOR HELPER Inhaled Oxygen Concentration - - Weight 122.9 kg (271 lb) 08/04/2024 11:44 AM STILL OPERATOR HELPER Height 175.3 cm (5' 9 ) 08/04/2024 11:44 AM STILL OPERATOR HELPER Body Mass Index 40.02 08/04/2024 11:44 AM STILL OPERATOR HELPER Plan of Treatment Health Maintenance Due Date [...] (#1) 2024 Medical Devices Implanted Type Area Personnel Consultant Device Identifier Shelf Expiration Date Model / Serial / Lot Impella Cp Percutaneous Left Ventricular Assist Device [id number] - [id number] Implanted:Qty: 1 on 01/07/2022 by Héctor Funes MD at [facility] LVAD Right: Femoral [employer] [id number] / / Medtronic Inc Resolute Gurwinder 4.5mm 2.1-2.7fr 15mm 140cm Rapid Exchange [id number] - [id number] Implanted:Qty: 1 on 01/07/2022 by Héctor Funes MD at [facility] Stent Right: Femoral Medtronic Inc [id number] / / Description:Circ [employer] Resolute Gurwinder 4mm 2.1-2.7fr 12mm 140cm Rapid Exchange Radiopaque [id number] - [id number] Implanted:Qty: 1 on 01/07/2022 by Héctor Funes MD at [facility] Stent Right: Femoral Med[employer] Inc [id number] / / Description:LAD Explanted Type Area Personnel Consultant Device Identifier Shelf Expiration Date Model / Serial / Lot [employer] Jordan Synergy Xd Monorail 4mm 12mm 144cm Delivery System 1 Access Port [id number] - [id number] Explanted:Qty: 1 on 01/07/2022 at [facility] Stent Right: Femoral [employer] Jordan [id number] / / Description:Circ [employer] Jordan Synergy Xd Monorail 4.5mm 16mm 144cm Delivery System 1 Access [id number] - [id number] Explanted:Qty: 1 on 01/07/2022 at [facility] Stent Right: Femoral [employer] Jordan [id number] / / Description:LAD Insurance [facility] AETNA BETTER [facility] [place] Advance Directives For more information, please contact: [phone] * Full Code (Latest Code Status on File) Date Activated Date Inactivated Comments 01/07/2022 1:45 AM 01/10/2022 6:00 PM Care Teams Boat Cleaning Supervisor Relationship Specialty Start [place] [address] [address] [address] [address] PCP - General Family Practice 01/08/22
--- OUTSIDE RECORDS SUMMARY | 2024-11-20 16:56 | XMS_ITS | Referral Summary ---
Author Organization [facility] [address] Address [address] [place] [address] Care Team Providers Care Soap Drier Tender Name Role Phone Amarjit Ontiveros MD Primary Care Provider [phone]- [phone] Allergies No known active allergies Medications aspirin [...] 20 mg tabletIndicatio ns:Coronary artery disease of pal[place] artery of [place]a heart with stable angina pectoris Take 1 [...] artery disease of n ative artery of pala heart with stable angina pectoris 09/21/2014 Overview (12/15/2016): Coronary arteriosclerosis in pal[place] artery HTN (hypertension), benign 09/21/2014 Overview (12/15/2016): [...] on file Legal Sex Male 1:16 AM RN DIGESTIVE Gender Identity Not on file Sexual Orientation Not on file Last Filed Vital Signs Vital Sign Reading Time Taken Comments Blood Pressure 118/78 08/04/2024 11:44 AM RN DIGESTIVE Pulse 78 08/04/2024 11:44 AM RN DIGESTIVE Temperature 36.7 C (98 F) 11/07/2022 5:34 PM RN DIGESTIVE Respiratory Rate 16 11/07/2022 5:34 PM RN DIGESTIVE Oxygen Saturation 95% 08/04/2024 11:44 AM RN DIGESTIVE Inhaled Oxygen Concentration - - Weight 122.9 kg (271 lb) 08/04/2024 11:44 AM RN DIGESTIVE Height 175.3 cm (5' 9 ) 08/04/2024 11:44 AM RN DIGESTIVE Body Mass Index 40.02 08/04/2024 11:44 AM RN DIGESTIVE Plan of Treatment Not on file Medical Devices Implanted Type Area Traffic Supervisor Device Identifier Shelf Expiration Date Model / Serial / Lot Impella Cp Percutaneous Left Ventricular Assist Device [id number] - [id number] Implanted:Qty: 1 on 01/07/2022 by Héctor Funes MD at [facility] LVAD Right: Femoral [employer] [id number] / / [employer] Resolute Gurwinder 4.5mm 2.1-2.7fr 15mm 140cm Rapid Exchange [id number] - [id number] Implanted:Qty: 1 on 01/07/2022 by Héctor Funes MD at [facility] Stent Right: Femoral [employer] Inc [id number] / / Description:Circ [employer] Resolute Gurwinder 4mm 2.1-2.7fr 12mm 140cm Rapid Exchange Radiopaque [id number] - [id number] Implanted:Qty: 1 on 01/07/2022 by Héctor Funes MD at [facility] Stent Right: Femoral [employer] Inc [id number] / / Description:LAD Explanted Type Area Traffic Supervisor Device Identifier Shelf Expiration Date Model / Serial / Lot [employer] Jordan Synergy Xd Monorail 4mm 12mm 144cm Delivery System 1 Access Port [id number] - [id number] Explanted:Qty: 1 on 01/07/2022 at [facility] Stent Right: Femoral [employer] Jordan [id number] / / Description:Circ [employer] Jordan Synergy Xd Monorail 4.5mm 16mm 144cm Delivery System 1 Access [id number] - [id number] Explanted:Qty: 1 on 01/07/2022 at [facility] Stent Right: Femoral [employer] Jordan [id number] / / Description:LAD [facility]TER [facility] AETNA BETTER [facility] Advance Directives For more information, please contact: [phone] * Full Code (Latest Code Status on File) Date Activated Date Inactivated Comments 01/07/2022 1:45 AM 01/10/2022 6:00 PM Care Teams Soap Drier Tender Relationship Specialty Start [place] [address] [address] PCP - General Family Practice 01/08/22
--- OUTSIDE RECORDS SUMMARY | 2024-11-20 16:56 | XMS_ITS | Encounter Summary ---
Author Organization [facility] Address [address] [place] [address] Care Team Providers Care Banking Teacher Name Role Phone Amarjit Ontiveros MD Primary Care Provider [phone]- [phone] Encounter Details Date Type Department Care Team (Late st Contact Info) Description 01/20/2024 Orders Only [facility] Health Information Management [address] [place] [id number] Scanning, Provider Social History Tobacco Use Types [...] on file Legal Sex Male 1:16 AM COASTAL AND ESTUARY SPECIALIST Gender Identity Not on file Sexual Orientation [...] on filedocumented in this encounter Care Teams Banking Teacher Relationship Specialty Start [place] [id number] [address] PCP - General Family Practice 01/08/22 documented as of this encounter
--- OUTSIDE RECORDS SUMMARY | 2024-11-20 16:56 | XMS_ITS | Clinical Summary ---
Author Organization [facility] Address [address] [place] [address] Phone Care Team Providers Care Crane Helper Name Role Phone Ciro Isaacs MD Primary Care Provider [phone] Allergies No known active allergies Medications metoprolol [...] Problems Problem Noted Date Diagnosed Date CMT (Mpsieok-Kykfl-Qspfu disease) 02/13/2017 Chronic right shoulder pain 02/13/2017 [...] (#1) 2024 Insurance POS II Care Teams Crane Helper Relationship Specialty Start Date End Date Ciro Isaacs MD PCP - General Urology 02/11/17
== END 2024-11-20 17:13 | disposition left against medical advice (07) ==
PROVIDERS: PCP Family Medicine
DX: Z53.21 Procedure and treatment not carried out due to patient leaving prior to being seen by health care provider (principal)
CPT/HCPCS: 99199